=== PATIENT | male | born 2000 | race Caucasian/White ===

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

== ENCOUNTER 2025-02-02 15:53 | Emergency (ER) | payer BC, OTHER, SELFPAY ==
--- OUTSIDE RECORDS SUMMARY | 2024-10-13 03:00 | XMS_ITS ---
Author Organization [facility] [employer] [facility] Address [facility] [facility] [address] [place] [address] Care Team Providers Care Seals Engraver Name Role Phone Max Wan Unavailable [phone] Alaina Hinton Unavailable [phone] REASON FOR VISIT Therapy Visit Social History Sex Assigned At : Social History Observation Description Sex Assigned At Male Encounters Encounter Location Date Provider Diagnosis [facility] [employer] [facility], [address] [facility] [address] [place] [address] 10/13/2024 Alaina Hinton Plan Of Treatment Next Appt Details Provider Name:Acacia weinberg, 02/09/2025 09:00:00 AM, [address], [facility] [address], [place], [address], Progress Notes * ARCENIO KELLERDOB:1999 (25 yo M)Acc No.[id number]:10/13/2024 Patient: ARCENIO FARR Provider: Romi Hinton :2000 A ge:24 Y S ex:Male Date:10/13/2024 Phone: Address:[address] [place] [id number] Data: * Chief Complaints: * T herapy Visit Billing Information: * Procedure Codes: * Electronic signature of Eddy Hinton LCPC on 02/02/2025 at 04:00 PM SUPERVISOR TELEPHONE INFORMATION Sign off status: Pending Signatures: No Ad Hoc Signature Added * Provider: Romi Hinton Date: 0 10/13/2024 Generated for Donna babb/Wild/Irene on: 1 04/04/2024 04:00 PM SUPERVISOR TELEPHONE INFORMATION
--- NOTE | 2025-02-02 15:55 | ED_ITS ---
HPI - Skin/Abscess/Foreign Bdy General Chief complaint: Skin/Abscess/Foreign Body Stated complaint: painful spot on rear end Time Seen by Provider: 02/02/25 16:08 Source: patient, RN notes reviewed and old records reviewed Mode of arrival: ambulatory Limitations: no limitations History of Present Illness HPI narrative: 25-year-old male presents to the [facility] with soreness, a ?bump? to the left buttock and center of the buttock. Denies any drainage. No treatment prior to arrival. Denies having any thing like this before. Denies abdominal pain. Denies fevers Treatments prior to arrival: none Related Data Allergies Allergy/AdvReac Type Severity Reaction Status Date / Time No Known Allergies Allergy Verified 02/02/25 16:02 Review of Systems 2 Review of Systems: All systems reviewed & are unremarkable except as noted in HPI and below Constitutional: Constitutional: Reports no additional constitutional complaints ENT: Reports system reviewed and no additional complaints, except as documented Cardiovascular: Cardiovascular: Reports no additional cardiovascular complaints, Denies chest pain and Denies dyspnea Respiratory: Respiratory: Reports no additional respiratory complaints, Denies chest congestion, Denies cough and Denies dyspnea Musculoskeletal: Musculoskeletal: Reports no additional musculoskeletal complaints Integumentary/Breasts: Skin/Breast: Reports as per HPI PMFSH Comments At the time of my signature, I reviewed and agree with the nursing past medical, surgical, social, and family history. There is no relevant family history pertinent to the patient complaint. Exam 2 Const: General: cooperative, healthy appearing, comfortable, no acute distress, well developed, alert and well nourished Nutritional Appearance: w ell nourished Orientation/consciousness: patient oriented x3 Limitations: no limitations HENMT: Head: normal to inspection Eyes: General: appearance normal, both eyes and all related structures A lignment and Position: alignment normal Neck: Neck: normal visual inspection, full ROM, no lymphadenopathy and no meningeal signs Chest: Chest palpation & inspection: normal inspection of the chest Resp: Effort & Inspection: normal respiratory effort and able to speak in complete sentences Auscultation: clear to auscultation bilaterally, no crackles, no rales, no rhonchi and no wheezes Cardio: Rate: regular rate Skin: General skin exam: normal color and no rashes or lesions noted Full body images: 1. 5.5 x 3.5 red tender area, small fluctuant center. Drainage noted on exam, purulent. Neuro: General: patient oriented x3, gait normal, moves all extremities and no meningeal signs Cognition (Neuro): normal cognition Speech: normal speech Gait exam (Neuro): Normal gait present Extrem: General: normal to inspection, full ROM, capillary refill normal and normal gait Psych: Appearance: grossly normal and well kempt Mental Status: mental status grossly normal Speech and movement: Normal speech and movement present and Clear speech present Affect: normal affect Attitude: cooperative Course Course Level of Care: Express Care Visit Vital Signs Vital signs: Vital Signs Temperature 98.3 F 02/02/25 16:00 Pulse Rate 83 02/02/25 16:00 Respiratory Rate 20 02/02/25 16:00 Blood Pressure 136/71 02/02/25 16:00 Pulse Oximetry 97 02/02/25 16:00 Oxygen Delivery Room Air 02/02/25 16:00 Temperature 98.3 F 02/02/25 16:00 Pulse Rate 83 02/02/25 16:00 Respiratory Rate 20 02/02/25 16:00 Blood Pressure 136/71 02/02/25 16:00 Pulse Oximetry 97 02/02/25 16:00 Oxygen Delivery Room Air 02/02/25 16:00 Reviewed Procedures Abscess I/D other: Date of Incision: 02/02/25 Time of Incision: 16:20 Local Anesthetic: lidocaine 1% (3.5) Amount of anesthesia used (mL): 3.5 Technique: incised with #11 blade Amount of fluid expressed (mL): 6 Irrigation: No MDM - Skin/Abscess/Foreign Bdy MDM Narrative Medical decision making narrative: Patient sitting in exam room. Patient is nontoxic, vitals stable. Patient presents with soreness. Pilonidal cyst. Drainage is noted. Area cleaned with Betadine, injected with lidocaine. Increase the size of the opening with 11 blade. Culture collected and sent to lab. Patient tolerated procedure well Discharge instructions reviewed with patient, as well as provided in writing per nursing staff. The instructions also include specific and strict return/GO TO THE ER as well as f/u information. All questions have been answered, and the patient deny any further questions with discharge and discharge plan. Some parts of this dictation were generated by voice recognition software and may contain typographical and/or grammatical inaccuracies. Differential Diagnosis Differential diagnosis: Likely abscess of skin or subcutaneous tissue, cellulitis, insect bites and contact dermatitis Critical Care Time Critical Care Time Critical Care Time: No Discharge Plan Discharge Clinical Impression: Pilonidal cyst Patient Disposition: Home Condition: Stable Instructions: Antibiotic Form, Pilonidal Cyst (ED) Additional Instructions: soak twice a day and 3 in a water, Dial soap and 3 tbsp of Epson salt follow-up with primary care provider If you are having a hard time finding a physician please call our [facility] liaison at [phone]. follow-up with surgeon for evaluation for worsening symptoms go directly to the emergency room Patient Language: Tamazight Prescriptions: New sulfamethoxazole-trimethoprim [Bactrim DS] 800-160 mg tablet 1 tablet PO Q12H Qty: 14 0RF Follow-up/Referrals: Venus Whitaker MD [Physician, General Surgery] - 1 Week Clinical Impression: Pilonidal cyst UNKNOWN,DOCTOR [Primary Care Provider] Stand Alone Forms: Work/School Release IP Time of Disposition: 16:34
[2025-02-02 16:00] VITALS: BP 136/71; PULSE 83; RESP 20; TEMP 36.8; O2SAT 97
--- OUTSIDE RECORDS SUMMARY | 2025-02-02 16:01 | XMS_ITS | Clinical Summary ---
Author Organization [facility] Address [address] [place] [address] Phone Care Team Providers Care Child Protective Services Specialist Name Role Phone Jean-PierreyessicaErik gregory DO Primary Care Provider Allergies No known active allergies Medications cefUROXime axetil (CEFTIN) 250 mg Oral tablet Take 250 mg by mouth every 12 hours. Active DEXTROMETHORPHAN HBR (DELSYM ORAL) Take by mouth. Active azithromycin (ZITHROMAX Z-SOPHIE) 250 mg Oral tablet Take 2 tabs the first day and 1 tab days 2-5 1 Package None 08/14/2011 Active Immunizations Immunization Administration Dates Next Due (INFANRIX)(6 WKS-6 YRS) DIPT HERIA, TETANUS TOXOIDS, AND ACCELLULAR PERTUSSIS VACCINE (DTAP), 0.5 ML IM 01/08/2006,01/29/2004,2002,2002,2002 (IPOL)(6 WKS AND UP) POLIOVI LUISITO VACCINE, INACTIVATED (IPV), 3 DOSE, SUBCUT OR IM 01/08/2006,2002,2002,2001 (M-M-R II/PRIORIX)(12 MO UP) MEASLES, MUMPS AND RUBELLA VIRUS VACCINE, 0.5 ML IM/SUBCUT 01/08/2006,05/25/2003 (VARIVAX)(12 MOS UP)VARICELL A VIRUS VACCINE (PF) 0.5 ML, SUB CUT 11/04/2007,05/25/2003 HIB, Unspecified Formulation 05/25/2003, 2002,2002,2001 Hepatitis A Vaccine 11/04/2007,01/31/2005 Hepatitis B Vaccine 2002,2002,2001 Pneumococcal 7-valent conjug ate vaccine IM 01/29/2004,2002,2002,2001 Family History Medical History Relation Name Comments No Known Problems Father No Known Problems Mother Relation Name Status Comments Father Mother Social History Tobacco Use Types Packs/Day Years Used Date Smoking Tobacco: Never Alcohol Use Standard Drinks/Week Comments Not Currently 0 (1 standard drink = 0.6 oz pur e alcohol) Sex and Gender Information Value Date Recorded Sex Assigned at Not on file Legal Sex Male 3:33 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 Gender Identity Not on file Sexual Orientation Not on file Last Filed Vital Signs Vital Sign Reading Time Taken Comments Blood Pressure 118/72 06/03/2021 11:10 PM 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 Pulse 67 06/03/2021 11:10 PM 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 Temperature 36.9 C (98.4 F) 06/03/2021 7:56 PM 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 Respiratory Rate 17 06/03/2021 11:10 PM 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 Oxygen Saturation 99% 06/03/2021 11:10 PM 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 Inhaled Oxygen Concentration - - Weight 68 kg (150 lb) 06/03/2021 8:11 PM 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 Height 182.9 cm (6') 06/03/2021 8:11 PM 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 Body Mass Index 20.34 06/03/2021 8:11 PM 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 Plan of Treatment Health Maintenance Due Date Last Done Comments DTAP/TDAP/TD VACCINES (7 - T d or Tdap) 05/05/2023 05/05/2013, 01/08/2006, 01/29/2004, Additional history exists INFLUENZA VACCINE (#1) 2024 12/19/2019 HEPATITIS B VACCINES Completed 2002, 2002, 2002, Additional history exists HPV VACCINES Completed 10/04/2017, 05/0 12/2016, 12/11/2015 Insurance [facility] [email or web address] ACCESS CHOICE [facility] [place] [id number] [facility] [email or web address] ACCESS CHOICE Care Teams Child Protective Services Specialist Relationship Specialty Start Date End Date Erik Galloway DO PCP - General Pediatrics 09/05/19
--- OUTSIDE RECORDS SUMMARY | 2025-02-02 16:01 | XMS_ITS | Encounter Summary ---
Author Organization [facility] Address 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
--- OUTSIDE RECORDS SUMMARY | 2025-02-02 16:01 | XMS_ITS | Clinical Summary ---
Author Organization [facility] [employer] Address [address] [address] Care Team Providers Care Plastic Surgery Assistant Name Role Phone Erik Galloway DO Primary Care Provider Source Comments [facility],non-owned Affiliates and Associated Physician Practices is amultiple site organization consisting of ambulatory clinics and hospital sitesin [place], [place], [place] and [place]. This disclosure is being madepursuant to the Care Everywhere program and may not contain all information available regarding this patient. Last updated 17.[facility] Allergies No known active allergies Medications * Be aware that medications may not be up to date on this document. Alwaysverify current medications with the patient. acetaminophen (TYLENOL) 325 MG tablet Take 2 (two) tablets by mouth every 6 hours as needed for Fever or Pain Maximum allowable Acetaminophen amount = 4 Grams (4000 mg) / 24 hours. 60 tablet 01 1 Active ibuprofen (MOTRIN) 200 MG tablet Take 1 (one) tablet to 2 (two) tablets by mouth every 6 hours as needed for Pain 100 tablet 1 Active Active Problems Problem Noted Date Diagnosed Date Attention deficit hyperactiv ity disorder (ADHD), predominantly inattentive type 10/04/2017 Immunizations Immunization Administration Dates Next Due DTaP VACCINE IM (6wk-6yrs) 01/08/2006,,2002,05/30,2002 HEP A PEDS 2 DOSE 11/04/2007,01/31/2005 HEP B VACCINE, PED/ADOL 2002,2002, HIB-PRP-T 4 DOSE 05/25/2003, 3,2002,03/27 Human Papilloma Virus Nineva lent Vaccine 10/04/2017 Human Papilloma Virus Vaccine 08/08/2016, 016 INFLUENZA VACCINE 12/11/2015,11/11/2014 INFLUENZA VACCINE, QUADR. (F LUZONE; FLULAVAL; FLUARIX; AFLURIA QUADRIVALENT; 6MO+), 0.5 ML (IIV4) 12/19/2019 MENINGOCOCAL MENINGITIS 11/11/2014 MENINGOCOCCAL ACWY (MCV4P) VAC IM 05/23/2019 MMR 01/08/2006,05/25/2003 PNEUMOCOCCAL PCV7 CONJ, PEDS 01/29/2004, 2002,2002,03/27 POLIO IPV 01/08/2006, 3,2002,03/27 TDAP (7yrs+) 05/05/2013 VARICELLA 11/04/2007,05/25/2003 Family History Medical History Relation Name Comments Asthma Father Allergic Rhinitis Maternal Grandmother Asthma Maternal Grandmother CAD (Coronary Artery Disease) Maternal Grandmother Diabetes - Type 2 Maternal Grandmother Hyperlipidemia Maternal Grandmother Hypertension Maternal Grandmother Allergic Rhinitis Mother Asthma Mother Relation Name Status Comments Father Maternal Grandmother Mother Social History Tobacco Use Types Packs/Day Years Used Date Smoking Tobacco: Never Smokeless Tobacco: Never Alcohol Use Standard Drinks/Week Comments Never 0 (1 standard drink = 0.6 oz pur e alcohol) Sex and Gender Information Value Date Recorded Sex Assigned at Not on file Legal Sex Male 9:40 AM CDT Gender Identity Not on file Sexual Orientation Not on file Last Filed Vital Signs Vital Sign Reading Time Taken Comments Blood Pressure 133/78 03/22/2021 11:30 AM LOG DRIVER Pulse 70 03/22/2021 11:30 AM LOG DRIVER Temperature 37 C (98.6 F) 03/22/2021 10:49 AM LOG DRIVER Respiratory Rate 16 03/22/2021 11:3 0 AM LOG DRIVER Oxygen Saturation 98% 03/22/2021 11: 30 AM LOG DRIVER Inhaled Oxygen Concentration - - Weight 71.6 kg (157 lb 12.8 oz) 03/22/2021 6:11 AM LOG DRIVER Height 182.9 cm (6') 03/22/2021 6:11 AM LOG DRIVER Body Mass Index 21.4 03/22/2021 6:11 AM LOG DRIVER Plan of Treatment Health Maintenance Due Date Last Done Comments HIV SCREENING 2017 MENINGOCOCCAL (Group B) VACC INE SHARED DECISION-MAKING (1 of 2 - Standard) 2018 HEPATITIS C SCREENING 01/03/2020 DTAP/TDAP/TD VACCINES (7 - T d or Tdap) 05/05/2023 05/05/2013, 01/08/2006, 01/09/2004, Additional history exists DEPRESSION SCREENING 04/02/2024 COVID-19 VACCINE ( - 2023-2 5 season) 2024 INFLUENZA VACCINE (#1) 2024 0, 12/11/2015, 11/11/2014 ZOSTER VACCINE (1 of 2) 01/08/2052 HEPATITIS B VACCINE Completed 2002, 2002, 2002 HIB VACCINE Completed 05/25/2003, 07/02, 2002, Additional history exists PNEUMOCOCCAL VACCINE Completed 01/29/2004, 2002, 2002, Additional history exists HPV VACCINE Completed 10/04/2017, 05/0 12/2016, 12/11/2015 MENINGOCOCCAL GROUPS A/C/Y/W VACCINE Completed 05/23/2019, 11/11/2014 Insurance [employer] ANTHEM ANTHEM Care Teams Plastic Surgery Assistant Relationship Specialty Start Date End Date Erik Galloway DO PCP - General 12/22/20
--- OUTSIDE RECORDS SUMMARY | 2025-02-02 16:01 | XMS_ITS | Encounter Summary ---
Author Organization [facility] Address [address] [place] [address] Care Team Providers Care Carbider Name Role Phone Erik Galloway DO Primary Care Provider Encounter Details Date Type Department Care Team (Late st Contact Info) Description [facility] Shruti Stevens MD [address] [place] [phone] [facility]IN CHILD HEALTH EXAM (Primary Dx) Social History Tobacco Use Types Packs/Day Years Used Date Smoking Tobacco: Never Assessed Sex and Gender Information Value Date Recorded Sex Assigned at Not on file Legal Sex Male 3:33 AM MEDICAL CERTIFICATION SPECIALIST Gender Identity Not on file Sexual Orientation Not on file documented as of this encounter Plan of Treatment Not on file documented as of this encounter Visit Diagnoses Diagnosis Routine or child health check- Primary documented in this encounter Care Teams Carbider Relationship Specialty Start Date End Date Erik Galloway DO PCP - General Pediatrics 09/05/19 documented as of this encounter
--- OUTSIDE RECORDS SUMMARY | 2025-02-02 16:01 | XMS_ITS | Encounter Summary ---
Author Organization [facility] Address 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
--- OUTSIDE RECORDS SUMMARY | 2025-02-02 16:01 | XMS_ITS | Encounter Summary ---
Author Organization [facility] Address 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
--- OUTSIDE RECORDS SUMMARY | 2025-02-02 16:01 | XMS_ITS | Encounter Summary ---
Author Organization [facility] Address [address] [place] [address] Care Team Providers Care Principal Systems Engineer Name Role Phone Erik Galloway DO Primary Care Provider Encounter Details Date Type Department Care Team (Late st Contact Info) Description 2002 Outpatient Historical [facility] [address] [place] [address] Theresa Watson MD [address] [facility] [address] [place] [address] Social History Tobacco Use Types Packs/Day Years Used Date Smoking Tobacco: Never Assessed Sex and Gender Information Value Date Recorded Sex Assigned at Not on file Legal Sex Male 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
--- OUTSIDE RECORDS SUMMARY | 2025-02-02 16:01 | XMS_ITS | Patient Health Record ---
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 Name Role Phone MaxWan Unavailable [phone] Tao Mckeon Unavailable [phone] Ema Silverio Unavailable [phone] Alaina Hinton Unavailable [phone] Allergies No Known Allergies Results Component Value Reference Range Notes UDT Reviewed date:10/16/2024 06:42:53 AM Interpretation: Performing Lab: Notes/Report: Amphetamine (AMP) N 0 - 1000 ng/ml Buprenorphine (BUP) N 0 - 10 ng/ml Oxazepam (BZO) N 0 - 300 ng/ml Cocaine (GIORGI) N 0 - 300 ng/ml Methamphetamine (mAMP) N 0 - 300 ng/ml Methylenedioxymethamphetamine (MDMA) N 0 - 500 ng/ml Morphine (MOP) N 0 - 25 ng/ml Methadone (MTD) N 0 - 300 ng/ml Oxycodone (OXY) N 0 - 300 ng/ml THC N 0 - 50 ng/ml x N 0 - 1000 ng/ml x N 0 - 1000 ng/ml x N 0 - 300 ng/ml x N 0 - 300 ng/ml UDT Reviewed date:08/01/2024 10:40:50 AM Interpretation: Performing Lab: Notes/Report: Amphetamine (AMP) n 0 - 1000 ng/ml Buprenorphine (BUP) n 0 - 10 ng/ml Oxazepam (BZO) n 0 - 300 ng/ml Cocaine (GIORGI) n 0 - 300 ng/ml Methamphetamine (mAMP) n 0 - 300 ng/ml Methylenedioxymethamphetamine (MDMA) n 0 - 500 ng/ml Morphine (MOP) n 0 - 25 ng/ml Methadone (MTD) n 0 - 300 ng/ml Oxycodone (OXY) n 0 - 300 ng/ml THC n 0 - 50 ng/ml x n 0 - 1000 ng/ml x n 0 - 1000 ng/ml x n 0 - 300 ng/ml x n 0 - 300 ng/ml Screening Reviewed date:09/05/2024 09:40:20 AM Interpretation: Performing Lab: [facility], [place], [address] [facility], [facility], Director - [id number] Notes/Report: An exception occurred while processing this report and so it has incomplete data. Please contact [employer] for assistance. Not Medicated Consistent Not Medicated Consistent Not Medicated Consistent Not Medicated Consistent Not Medicated Consistent Not Medicated Consistent Not Medicated Consistent Not Medicated Consistent Not Medicated Consistent Not Medicated Consistent Not Medicated Consistent Not Medicated Consistent Not Medicated Consistent Not Medicated Consistent Amphetamines - Screening NEGATIVE 500.0 Benzodiazepines - Screening -9.8 200.0 ng/mL Opiates - Screening -10.9 300.0 ng/mL THC - Screening 1.4 50.0 MDMA - Screening NEGATIVE 500.0 Heroin - Screening NEGATIVE 10.0 Cocaine - Screening NEGATIVE 150.0 ng/mL Buprenorphine - Screening NEGATIVE 5.0 ng/mL Oxycodone - Screening NEGATIVE 100.0 ng/mL EtG - Screening NEGATIVE 500.0 ng/mL Fentanyl - Screening NEGATIVE 2.0 ng/mL Methadone - Screening -5.6 300.0 ng/mL Phencyclidine - Screening NEGATIVE 25.0 ng/mL Propoxyphene - Screening -2.2 300.0 ng/mL PDF Report [email or web address] [email or web address] THCCOOH Reviewed date:09/05/2024 09:40:25 AM Interpretation: Performing Lab: Notes/Report: THCCOOH NEGATIVE 15.0 ng/mL Not Medicated Consistent Seroquel Reviewed date:09/05/2024 09:40:31 AM Interpretation: Performing Lab: Notes/Report: UDT Reviewed date:09/03/2024 09:33:01 AM Interpretation: Performing Lab: Notes/Report: Amphetamine (AMP) n 0 - 1000 ng/ml Buprenorphine (BUP) n 0 - 10 ng/ml Oxazepam (BZO) n 0 - 300 ng/ml Cocaine (GIORGI) n 0 - 300 ng/ml Methamphetamine (mAMP) n 0 - 300 ng/ml Methylenedioxymethamphetamine (MDMA) n 0 - 500 ng/ml Morphine (MOP) n 0 - 25 ng/ml Methadone (MTD) n 0 - 300 ng/ml Oxycodone (OXY) n 0 - 300 ng/ml THC feint 0 - 50 ng/ml x n 0 - 1000 ng/ml x n 0 - 1000 ng/ml x n 0 - 300 ng/ml x n 0 - 300 ng/ml Reason For Referral No Information Medications Medication SIG (Take, Route, Frequency, Duration) Notes Start Date End Date Status Atomoxetine HCl 60 MG Capsule 1 capsule in the morning Orally Once a day; Duration: 30 days Active Escitalopram Oxalate 10 MG Tablet 1 tablet Oral Once a day; Duration: 90 days Active Invega Sustenna 156 MG/ML Suspension Prefilled Syringe 1 mL Intramuscular once a month; Duration: 30 days Active QUEtiapine Fumarate 50 MG Tablet 1 tablet at bedtime Orally Once a day 10/13/2024 Active QUEtiapine Fumarate ER 50 MG Tablet Extended Release 24 Hour 2 tablet in the evening Orally Once a day 08/08/2024 Unknown Invega Sustenna 234 MG/1.5ML Suspension Prefilled Syringe 1.5 mL Intramuscular once; Duration: 1 days Unknown Invega Sustenna 156 MG/ML Suspension Prefilled Syringe 1 mL Intramuscular next dose due on 12/01/2024 09/19/2024 Active traZODone HCl 50 MG Tablet 1 tablet at bedtime as needed Orally Once a day 10/31/2024 Active Social History Tobacco Use: Social History Observation Description Date Details (start date - stop date) Current some da y smoker NA - NA Sex Assigned At : Social History Observation Description Sex Assigned At Male Social History Miscellaneous: Social Info Question Answer Notes Safety issues: Are there any firearms in the house? No Social History Social Info Question Answer Notes Household: Marital Status: Not Answered Number of Adults in household: 3 Number of Children in Household: 2 Level of Education: Not Answered Household: Social Info Question Answer Notes Household Number of adults in household: 3 Number of children in household: 2 Level of education: finished high school Drug/Alcohol: Social Info Question Answer Notes Drugs Have you used drugs other than those for medical reasons in the past 12 months? Yes Methamphetamine? Yes Crack? Yes LSD? No Ecstacy? No Prescription opiates? Yes Marijuana? Yes Ketamine? No PCP? No Is there a minor (18 years or younger) at risk at home? No Are you still using? No AUDIT-C (Standard) Did you have a drink containi ng alcohol in the past year? Yes How often did you have six or more drinks on one occasion in the past year? Never (0 point) How many drinks did you have on a typical day when you were drinking in the past year? Declined to specify (0 point) How often did you have a drink containing alcohol in the past year? Monthly or less (1 point) Tobacco Use: Social Info Question Answer Notes Tobacco Control (Standard) Tobacco use: Current some d ay smoker How often do you smoke cigarettes? Every day How many cigarettes a day do you smoke? 6-10 How soon after you wake up do you smoke your first cigarette? Within 5 minutes Additional Details Category Social Info Options Details Miscellaneous: Occupation: out of work Drug/Alcohol: Do you smoke marijuana? Adm its Problems Problem Type SNOMED Code ICD Code Onset Dates Problem Status W/U Status Risk Notes Problem Moderate major depression, single episode (61029089) Major depressive disorder, single episode, moderate (F32.1) Active confirmed Problem Generalized anxiety disorder (07160178) Generalized anxiety disorder (F41.1) Active confirmed well controlled, continue current therapy stable [id number] on 10/13/2024: 1 Problem Insomnia disorder related to another mental disorder (97762506) Insomnia due to other mental disorder (F51.05) Active confirmed needs improvement Problem Attention deficit hyperactivity disorder (056887993) Attention-deficit hyperactivity disorder, unspecified type (F90.9) Active confirmed Previously diagnosed Problem Hallucinations (9685915) Hallucinations, unspecified (R44.3) Active confirmed Problem Irritability and anger (604771253) Irritability and anger (R45.4) Active confirmed Problem Depression Screening (167619818) Encounter for screening for depression (Z13.31) Active confirmed Problem Nondependent cannabis abuse (262839518) Marijuana use (F12.90) Active confirmed reports he no longer uses marijuana Problem Attention deficit hyperactivity disorder (244303920) Attention deficit hyperactivity disorder (ADHD), unspecified ADHD type (F90.9) Active confirmed Problem Schizoaffective schizophrenia (440956211) Schizoaffective schizophrenia (F25.9) Active confirmed well controlled, continue current therapy stable Problem Tobacco use (009296917) Nicotine use (Z72.0) Active confirmed Vital Signs Heart Rate 92 /min 11/28/2024 Height-cm 177.8 cm 11/28/2024 Blood pressure diastolic 70 mm Hg 11/28/2024 Weight-kg 99.79 kg 11/28/2024 Height 70 in 11/28/2024 Blood pressure systolic 112 mm Hg 11/28/2024 Weight 220.0 lbs 11/28/2024 BMI 31.56 kg/m2 11/28/2024 Procedures Procedure Date Ordered Date Performed Result Body Sit e ADHD Testing 10/13/2024 N/A Encounters Encounter Location Date Provider Diagnosis [facility] [employer] [address] [place] [id number] 08/01/2024 Awn [employer] Schizoaffective schizophrenia F25.9 ; Nicotine use Z72.0 ; Encounter for screening for depression Z13.31 and Encounter for screening for cardiovascular disorders Z13.6 [employer] [address] [place] [id number] 08/01/2024 Alaina Hinderlikarin Generalized anxiety disorder F41.1 ; Hallucinations, unspecified R44.3 ; Irritability and anger R45.4 ; Encounter for screening for depression Z13.31 and Encounter for screening for cardiovascular disorders Z13.6 [facility] [employer] [address] 08/08/2024 Alaina Hinderliter Generalized anxiety disorder F41.1 ; Hallucinations, unspecified R44.3 ; Irritability and anger R45.4 and Encounter for screening for depression Z13.31 [facility] [employer] [address] [address] 08/08/2024 Wan Clubb Encounter for screening for depression Z13.31 ; Generalized anxiety disorder F41.1 ; Hallucinations, unspecified R44.3 ; Nicotine use Z72.0 and Encounter for screening for cardiovascular disorders Z13.6 [facility] [employer] [facility], [address] [address] 08/22/2024 Alaina Hinderliter Generalized anxiety disorder F41.1 ; Major depressive disorder, single episode, moderate F32.1 ; Irritability and anger R45.4 ; Nicotine use Z72.0 ; Hallucinations, unspecified R44.3 and Encounter for screening for depression Z13.31 [facility] [employer] [facility], [employer] [facility] [address] [place] [address] 08/22/2024 Wan [employer] Encounter for screening for depression Z13.31 ; Schizoaffective schizophrenia F25.9 ; Generalized anxiety disorder F41.1 ; Nicotine use Z72.0 and Irritability and anger R45.4 [facility] [employer] [facility], [employer] [facility] [address] [place] [address] 09/03/2024 Alaina Hinderliter Major depressive disorder, single episode, moderate F32.1 ; Generalized anxiety disorder F41.1 ; Hallucinations, unspecified R44.3 ; Nicotine use Z72.0 ; Irritability and anger R45.4 and Encounter for screening for depression Z13.31 [facility] [employer] [facility], [employer] [facility] [address] [place] [address] 09/03/2024 Wan [employer] Schizoaffective schizophrenia F25.9 ; Generalized anxiety disorder F41.1 ; Nicotine use Z72.0 ; Marijuana use F12.90 ; Encounter for screening for depression Z13.31 and Encounter for screening for cardiovascular disorders Z13.6 [facility] [employer], [employer] [facility] [address] [place] [address] 09/08/2024 Alaina Hinderliter Marijuana use F12.90 ; Major depressive disorder, single episode, moderate F32.1 ; Generalized anxiety disorder F41.1 ; Hallucinations, unspecified R44.3 ; Irritability and anger R45.4 and Encounter for screening for depression Z13.31 [facility] [employer] [facility] [place] [address] 09/22/2024 Wan Clubb Encounter for screening for cardiovascular disorders Z13.6 and Schizoaffective schizophrenia F25.9 [facility] [employer], [employer] [facility] [address] [place] [address] 09/22/2024 Alaina Hinderliter Generalized anxiety disorder F41.1 ; Impulsiveness R45.87 ; Irritability and anger R45.4 and Encounter for screening for depression Z13.31 [facility] [employer] [facility] [place] [address] 09/29/2024 Wan [employer] Schizoaffective schizophrenia F25.9 ; Encounter for screening for cardiovascular disorders Z13.6 and Encounter for screening for depression Z13.31 [facility] [employer] [facility], [employer] [address] [place] [address] 09/29/2024 Alaina Hinton Generalized anxiety disorder F41.1 ; Attention-deficit hyperactivity disorder, unspecified type F90.9 ; Insomnia due to other mental disorder F51.05 ; Irritability and anger R45.4 and Encounter for screening for depression Z13.31 [facility] [employer] [facility], [employer] [address] [place] [address] 10/06/2024 Wan [employer]b [facility] [employer] [facility], [employer] [address] [place] [address] 10/13/2024 Wan [employer] Generalized anxiety disorder F41.1 ; Schizoaffective schizophrenia F25.9 ; Nicotine use Z72.0 ; Attention-deficit hyperactivity disorder, unspecified type F90.9 ; Marijuana use F12.90 and Insomnia due to other mental disorder F51.05 [facility] [employer] [facility] [address] [place] [address] 10/14/2024 Tao Linda Attention deficit hyperactivity disorder (ADHD), unspecified ADHD type F90.9 [facility] [employer] [facility], [address] [address] [place] [address] 10/24/2024 Wan Clubb [facility] [employer] [facility] [address] [place] [address] 10/31/2024 Tao Linda [facility] [employer] [facility], [address] [address] [place] [address] 10/31/2024 Wan Clubb Generalized anxiety disorder F41.1 ; Schizoaffective schizophrenia F25.9 ; Nicotine use Z72.0 ; Attention-deficit hyperactivity disorder, unspecified type F90.9 ; Marijuana use F12.90 and Insomnia due to other mental disorder F51.05 [facility] [employer] [facility] [address] [place] [address] 11/28/2024 Tao Linda Schizoaffective schizophrenia F25.9 [facility] [employer] [facility] [address] [place] [address] 12/05/2024 Ema Jean Claude [facility] [employer], [facility] [address] [place] [address] 08/01/2024 Wan Clubb [facility] [employer], [facility] [address] [place] [address] 08/28/2024 Wan Clubb [facility] [employer], [facility] [address] [place] [address] 10/02/2024 Wan Clubb [facility] [employer] [facility], [employer] [address] [place] [address] 10/07/2024 Wna Clubb [facility] [employer], [facility] [address] [place] [address] 10/13/2024 Wan Clubb [facility] [employer], [facility] [address] [place] [address] 10/31/2024 Wan Clubb [facility] [employer], [facility] [address] [place] [address] 11/13/2024 Wan Clubb Schizoaffective schizophrenia F25.9 Assessments Encounter Date Diagnosis (ICD Code) Assessment Notes Treatment Notes Treatment Clinical Notes Section Notes 08/01/2024 Schizoaffective schizophrenia (ICD-10 - F25.9) Learning About Schizoaffective Disorder material was published 08/01/2024 Nicotine use (ICD-10 - Z72.0) Quitting Tobacco: Care Instructions material was published 08/01/2024 Generalized anxiety disorder (ICD-10 - F41.1) 1. Anxiety with panic attacks - Implement weekly therapy sessions focusing on anxiety management techniques. - Explore triggers and underlying causes of panic attacks in specific locations. - Consider gradual exposure therapy to reduce anxiety in problematic settings. 2. Attention Deficit Hyperactivity Disorder (ADHD) - Assess current ADHD management strategies and their effectiveness. - Develop tailored coping mechanisms for improved focus and task completion. - Coordinate with medication management provider regarding potential ADHD medication options. 3. Hallucinations - Further assess the nature, frequency, and impact of hallucinations. - Explore potential environmental triggers or sleep-related factors. - Coordinate with medication management provider to evaluate current medications and their potential impact on hallucinations. 4. Anger management - Implement anger management techniques within therapy sessions. - Develop healthier communication strategies, particularly for family interactions. - Educate on the distinction between feeling anger and expressing it appropriately. 5. Sleep disturbances - Monitor sleep patterns and their impact on daily functioning. - Discuss sleep hygiene techniques and potential adjustments to sleep schedule. - Coordinate with medication management provider regarding prazosin use and its effects on sleep quality. 6. Appetite changes - Monitor eating patterns and their impact on overall health and well-being. - Provide education on balanced nutrition and meal planning if needed. 7. Motivation and daily living activities - Develop strategies to improve motivation and task initiation for daily activities. - Implement behavioral activation techniques to increase engagement in self-care and household tasks. - Monitor for signs of depression and adjust treatment plan as needed. Follow-up: - Schedule next therapy session to continue addressing identified issues and monitor progress. 08/01/2024 Hallucinations, unspecified (ICD-10 - R44.3) 1. Anxiety with panic attacks - Implement weekly therapy sessions focusing on anxiety management techniques. - Explore triggers and underlying causes of panic attacks in specific locations. - Consider gradual exposure therapy to reduce anxiety in problematic settings. 2. Attention Deficit Hyperactivity Disorder (ADHD) - Assess current ADHD management strategies and their effectiveness. - Develop tailored coping mechanisms for improved focus and task completion. - Coordinate with medication management provider regarding potential ADHD medication options. 3. Hallucinations - Further assess the nature, frequency, and impact of hallucinations. - Explore potential environmental triggers or sleep-related factors. - Coordinate with medication management provider to evaluate current medications and their potential impact on hallucinations. 4. Anger management - Implement anger management techniques within therapy sessions. - Develop healthier communication strategies, particularly for family interactions. - Educate on the distinction between feeling anger and expressing it appropriately. 5. Sleep disturbances - Monitor sleep patterns and their impact on daily functioning. - Discuss sleep hygiene techniques and potential adjustments to sleep schedule. - Coordinate with medication management provider regarding prazosin use and its effects on sleep quality. 6. Appetite changes - Monitor eating patterns and their impact on overall health and well-being. - Provide education on balanced nutrition and meal planning if needed. 7. Motivation and daily living activities - Develop strategies to improve motivation and task initiation for daily activities. - Implement behavioral activation techniques to increase engagement in self-care and household tasks. - Monitor for signs of depression and adjust treatment plan as needed. Follow-up: - Schedule next therapy session to continue addressing identified issues and monitor progress. 08/08/2024 Generalized anxiety disorder (ICD-10 - F41.1) 1. Anger management and overstimulation - Patient reports improved stability in managing anger, particularly around his young siblings. - Implementing strategies to distance himself when feeling overstimulated, often recognizing the need when it's too late. - Describes feeling snippy when overwhelmed and tendency to want to physically remove himself from overstimulating situations. - Acknowledges difficulty in finding effective ways to create space, as children tend to follow him. - Demonstrates insight into the need for better coping mechanisms and shows willingness to learn new strategies. Plan: - Implement TIP (Temperature, Intense exercise, Paced breathing, Paired muscle relaxation). - Practice coping skills for short durations (e.g., 2 minutes) when calm to build habit. - Continue to monitor effectiveness of current strategies and adjust as needed. 2. Occupational concerns - Patient expresses interest in seeking employment and has been actively applying for jobs. 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 - Expresses ambivalence about working from home versus outside the home, noting desire to leave the house. - Mentions long-term goals of saving money, investing, or potentially relocating to [place] for business opportunities. Plan: - Encourage continued job search efforts and preparation for upcoming online interview. - Explore potential job opportunities that align with patient's interests and physical capabilities. - Discuss strategies for balancing work life with home responsibilitie s and mental health management. - Address potential challenges and coping strategies related to transitioning back into the workforce. 3. Social isolation and relationship management - Patient reports limited social connections, identifying only one friend, his sister, and sister's boyfriend. - Mentions distancing himself from old friends but acknowledges difficulty in fully letting go of these relationships. - Has abstained from social media use for over a year and a half, which may contribute to limited social network. Plan: - Explore patient's feelings about current social situation and desire for change. - Discuss healthy boundaries and strategies for maintaining beneficial relationships while distancing from potentially harmful ones. - Consider pros and cons of re-engaging with social media in a controlled manner to expand social connections. - Encourage patient to identify and pursue social activities aligned with his interests and values. 08/08/2024 Hallucinations, unspecified (ICD-10 - R44.3) 1. Anger management and overstimulation - Patient reports improved stability in managing anger, particularly around his young siblings. - Implementing strategies to distance himself when feeling overstimulated, often recognizing the need when it's too late. - Describes feeling snippy when overwhelmed and tendency to want to physically remove himself from overstimulating situations. - Acknowledges difficulty in finding effective ways to create space, as children tend to follow him. - Demonstrates insight into the need for better coping mechanisms and shows willingness to learn new strategies. Plan: - Implement TIP (Temperature, Intense exercise, Paced breathing, Paired muscle relaxation). - Practice coping skills for short durations (e.g., 2 minutes) when calm to build habit. - Continue to monitor effectiveness of current strategies and adjust as needed. 2. Occupational concerns - Patient expresses interest in seeking employment and has been actively applying for jobs. 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 - Expresses ambivalence about working from home versus outside the home, noting desire to leave the house. - Mentions long-term goals of saving money, investing, or potentially relocating to [place] for business opportunities. Plan: - Encourage continued job search efforts and preparation for upcoming online interview. - Explore potential job opportunities that align with patient's interests and physical capabilities. - Discuss strategies for balancing work life with home responsibilitie s and mental health management. - Address potential challenges and coping strategies related to transitioning back into the workforce. 3. Social isolation and relationship management - Patient reports limited social connections, identifying only one friend, his sister, and sister's boyfriend. - Mentions distancing himself from old friends but acknowledges difficulty in fully letting go of these relationships. - Has abstained from social media use for over a year and a half, which may contribute to limited social network. Plan: - Explore patient's feelings about current social situation and desire for change. - Discuss healthy boundaries and strategies for maintaining beneficial relationships while distancing from potentially harmful ones. - Consider pros and cons of re-engaging with social media in a controlled manner to expand social connections. - Encourage patient to identify and pursue social activities aligned with his interests and values. 08/08/2024 Generalized anxiety disorder (ICD-10 - F41.1) 08/08/2024 Encounter for screening for depression (ICD-10 - Z13.31) 08/22/2024 Major depressive disorder, single episode, moderate (ICD-10 - F32.1) Nicotine Dependence Assessment: Patient reports smoking 2.5 to 3 packs of cigarettes per week, down from previous higher consumption. He expresses a desire to quit smoking but acknowledges the difficulty, citing its use as a coping mechanism for stress and its stimulant effects. The patient recognizes the need to find alternative coping strategies and is open to gradual reduction rather than abrupt cessation. Plan: - Implement gradual smoking reduction strategy - Introduce alternative coping mechanisms: - Use of plastic or paper straws cut to cigarette size for [id number] habit - Engage in physical activities (e.g., walking, biking, workout, yoga) when urge to smoke arises - Practice grounding techniques using 5 senses - Consider using rubber band on wrist as a reminder/deterr ent - Encourage healthy snack alternatives (e.g., carrots, watermelon) to manage oral fixation - Set a goal date for complete smoking cessation - Calculate potential financial savings from quitting to use as motivation Sleep Disturbance Assessment: Patient reports difficulty with sleep, which is impacting his daily routine and motivation. There are indications of auditory and visual hallucinations related to past. The sleep disturbance appears to be cyclical, with lack of sleep causing issues that lead to later bedtimes and difficulty waking in the morning. Plan: - Establish consistent sleep schedule: - Target bedtime of 9:30-10:00 PM - Wake-up time around 6:00-6:30 AM - Follow up with [facility] for medication management - Implement morning routine to promote wakefulness: - Open room-darkening curtains upon waking - Allow natural light into the room - Open windows for fresh air when weather permits - Monitor effectiveness of sleep hygiene measures and medication adjustments Lifestyle Management Assessment: Patient expresses interest in establishing a healthier daily routine, including regular exercise and improved time management. He acknowledges the need for structure to support his goals of smoking cessation and better sleep habits. The patient also mentions a tendency to hold in emotions, which can lead to sudden outbursts. Plan: - Develop structured daily schedule: - Wake up at 6:00-6:30 AM - Begin at-home workouts 15-20 minutes after waking - Exercise for 30-45 minutes - Have breakfast/brunc h after workout - Gradually work towards gym attendance at 4:30 AM as a long-term goal - Encourage use of alarm clock to maintain consistent wake times - Explore healthy emotional expression techniques to prevent emotional suppression and outbursts - Implement regular outdoor activities to promote exposure to natural light and fresh air 08/22/2024 Generalized anxiety disorder (ICD-10 - F41.1) Nicotine Dependence Assessment: Patient reports smoking 2.5 to 3 packs of cigarettes per week, down from previous higher consumption. He expresses a desire to quit smoking but acknowledges the difficulty, citing its use as a coping mechanism for stress and its stimulant effects. The patient recognizes the need to find alternative coping strategies and is open to gradual reduction rather than abrupt cessation. Plan: - Implement gradual smoking reduction strategy - Introduce alternative coping mechanisms: - Use of plastic or paper straws cut to cigarette size for [id number] habit - Engage in physical activities (e.g., walking, biking, workout, yoga) when urge to smoke arises - Practice grounding techniques using 5 senses - Consider using rubber band on wrist as a reminder/deterr ent - Encourage healthy snack alternatives (e.g., carrots, watermelon) to manage oral fixation - Set a goal date for complete smoking cessation - Calculate potential financial savings from quitting to use as motivation Sleep Disturbance Assessment: Patient reports difficulty with sleep, which is impacting his daily routine and motivation. There are indications of auditory and visual hallucinations related to past. The sleep disturbance appears to be cyclical, with lack of sleep causing issues that lead to later bedtimes and difficulty waking in the morning. Plan: - Establish consistent sleep schedule: - Target bedtime of 9:30-10:00 PM - Wake-up time around 6:00-6:30 AM - Follow up with [facility] for medication management - Implement morning routine to promote wakefulness: - Open room-darkening curtains upon waking - Allow natural light into the room - Open windows for fresh air when weather permits - Monitor effectiveness of sleep hygiene measures and medication adjustments Lifestyle Management Assessment: Patient expresses interest in establishing a healthier daily routine, including regular exercise and improved time management. He acknowledges the need for structure to support his goals of smoking cessation and better sleep habits. The patient also mentions a tendency to hold in emotions, which can lead to sudden outbursts. Plan: - Develop structured daily schedule: - Wake up at 6:00-6:30 AM - Begin at-home workouts 15-20 minutes after waking - Exercise for 30-45 minutes - Have breakfast/brunc h after workout - Gradually work towards gym attendance at 4:30 AM as a long-term goal - Encourage use of alarm clock to maintain consistent wake times - Explore healthy emotional expression techniques to prevent emotional suppression and outbursts - Implement regular outdoor activities to promote exposure to natural light and fresh air 08/22/2024 Encounter for screening for depression (ICD-10 - Z13.31) 08/22/2024 Schizoaffective schizophrenia (ICD-10 - F25.9) drug use vs schizoaffective disorder. progress in treatment dependent on repeat urine drug screen *patient refused* increased quetiapine to 150 mg HS continue escitalopram 10 mg daily - start invega 6 mg for 3 days if urine drug screen comes back negative and symptoms persist. - invega sustenna 234 mg IM once after tolerability of invega PO confirmed - invega sustena 156 mg IM once one week after first IM injection. CancelRx Response got Denied on 2024-10-13 11:00:15 for 'QUEtiapine Fumarate ER 150 MG Tablet Extended Release 24 Hour'Pharmacy Notes: Unable to Cancel Rx. Please contact Pharmacy drug use vs schizoaffective disorder. progress in treatment dependent on repeat urine drug screen *patient refused* increased quetiapine to 150 mg HS - start invega 6 mg for 3 days if urine drug screen comes back negative and symptoms persist. - invega sustenna 234 IM once after tolerability of invega PO confirmed - invega sustena 156 mg IM once one week after first IM injection. 09/03/2024 Major depressive disorder, single episode, moderate (ICD-10 - F32.1) Depression Assessment: Akin exhibits symptoms consistent with depression, including low energy, lack of motivation, and difficulty maintaining a daily routine. He reports spending most of his day inactive, waiting for the day to end. There is a notable absence of structured activities and a lack of engagement in job searching, having only applied to one position recently. His sleep pattern is disrupted, with late wake-up times (10:30-11:00 AM). Akin expresses a desire for employment but struggles to initiate the necessary steps. He has attempted to quit smoking cold turkey without success. There is a history of alcohol use, which may be exacerbating his depressive symptoms and interfering with medication efficacy. Akin is resistant to taking medication, citing concerns about grogginess and a preference for managing independently. Plan: - Implement gradual behavioral activation techniques: - Start with small movements (e.g., wiggling fingers and toes) - Progress to larger movements (e.g., getting out of bed) - Encourage outdoor activities and exposure to bright light - Focus on job search strategies: - Set small, achievable goals for job applications - Utilize job search platforms like [employer] - Address alcohol use: - Educate on negative interactions with medications and impact on mood - Encourage reduction or cessation of alcohol consumption - Discuss smoking cessation strategies as an alternative to cold turkey approach - Continue to explore patient's hesitations about medication while respecting his preferences - Schedule follow-up appointments every other week as per patient's preference 09/03/2024 Generalized anxiety disorder (ICD-10 - F41.1) Depression Assessment: Akin exhibits symptoms consistent with depression, including low energy, lack of motivation, and difficulty maintaining a daily routine. He reports spending most of his day inactive, waiting for the day to end. There is a notable absence of structured activities and a lack of engagement in job searching, having only applied to one position recently. His sleep pattern is disrupted, with late wake-up times (10:30-11:00 AM). Akin expresses a desire for employment but struggles to initiate the necessary steps. He has attempted to quit smoking cold turkey without success. There is a history of alcohol use, which may be exacerbating his depressive symptoms and interfering with medication efficacy. Akin is resistant to taking medication, citing concerns about grogginess and a preference for managing independently. Plan: - Implement gradual behavioral activation techniques: - Start with small movements (e.g., wiggling fingers and toes) - Progress to larger movements (e.g., getting out of bed) - Encourage outdoor activities and exposure to bright light - Focus on job search strategies: - Set small, achievable goals for job applications - Utilize job search platforms like [employer] - Address alcohol use: - Educate on negative interactions with medications and impact on mood - Encourage reduction or cessation of alcohol consumption - Discuss smoking cessation strategies as an alternative to cold turkey approach - Continue to explore patient's hesitations about medication while respecting his preferences - Schedule follow-up appointments every other week as per patient's preference 09/03/2024 Generalized anxiety disorder (ICD-10 - F41.1) 09/08/2024 Major depressive disorder, single episode, moderate (ICD-10 - F32.1) Cannabis Use Disorder, in early remission Assessment: Patient reports smoking cannabis a couple of weeks ago but expresses a desire to discontinue use. He states, I don't really want to go back to it after that and it wasn't the same, indicating a shift in his perception of cannabis use. This change in attitude, coupled with his efforts to find alternative activities like window shopping, suggests progress towards abstinence. The patient's concern about drug testing for his potential job at [employer] further motivates his abstinence. Plan: - Continue to monitor cannabis use and reinforce abstinence. - Explore and encourage alternative coping mechanisms and activities to replace cannabis use. - Discuss strategies to maintain abstinence, particularly in light of upcoming employment opportunity. Insomnia Assessment: Patient reports waking up around 3 AM and taking approximately 20 minutes to fall back asleep. He identifies temperature as a possible contributing factor to his sleep disturbance. Current sleep environment includes a fan in the basement, but patient reports limited ability to further cool the room. Plan: - Explore additional sleep hygiene techniques to improve sleep quality. - Discuss potential environmental modifications to address temperature concerns. - Monitor sleep patterns and their impact on daily functioning. 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 Plan: - Provide support and encouragement for upcoming job interview. - Discuss strategies for interview preparation and professional presentation. - Explore patient's career goals and potential long-term employment options. 09/08/2024 Marijuana use (ICD-10 - F12.90) Cannabis Use Disorder, in early remission Assessment: Patient reports smoking cannabis a couple of weeks ago but expresses a desire to discontinue use. He states, I don't really want to go back to it after that and it wasn't the same, indicating a shift in his perception of cannabis use. This change in attitude, coupled with his efforts to find alternative activities like window shopping, suggests progress towards abstinence. The patient's concern about drug testing for his potential job at [employer] further motivates his abstinence. Plan: - Continue to monitor cannabis use and reinforce abstinence. - Explore and encourage alternative coping mechanisms and activities to replace cannabis use. - Discuss strategies to maintain abstinence, particularly in light of upcoming employment opportunity. Insomnia Assessment: Patient reports waking up around 3 AM and taking approximately 20 minutes to fall back asleep. He identifies temperature as a possible contributing factor to his sleep disturbance. Current sleep environment includes a fan in the basement, but patient reports limited ability to further cool the room. Plan: - Explore additional sleep hygiene techniques to improve sleep quality. - Discuss potential environmental modifications to address temperature concerns. - Monitor sleep patterns and their impact on daily functioning. 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 Plan: - Provide support and encouragement for upcoming job interview. - Discuss strategies for interview preparation and professional presentation. - Explore patient's career goals and potential long-term employment options. 09/22/2024 Encounter for screening for cardiovascular disorders (ICD-10 - Z13.6) Verified the injection dose and diagnosis 09/22/2024 Schizoaffective schizophrenia (ICD-10 - F25.9) Verified the injection dose and diagnosis 09/22/2024 Generalized anxiety disorder (ICD-10 - F41.1) Attention-Defic it/Hyperactivit y Disorder (ADHD) Assessment: Patient has a known history of ADHD, which is contributing to difficulties with impulse control and self-regulation . These symptoms are impacting his eating habits and decision-making processes. The patient expresses a desire to improve his self-control, particularly in relation to impulsive decisions and eating behaviors. He reports difficulty in managing these impulses independently, indicating that his ADHD symptoms are currently not optimally controlled. Plan: - Implement impulse control strategies: - Utilize grounding techniques such as cold sensations (e.g., splashing cold water on face) or sour candy to create a pause before acting on impulses - Practice using physical reminders (e.g., rubber band or hair tie) to prompt conscious decision-making - Address eating habits: - Encourage patient to pause and assess true hunger versus emotional eating - Recommend drinking water when feeling the urge to eat unnecessarily - Suggest incorporating high-fiber foods like vegetables (e.g., broccoli) to promote satiety - Follow up next Sunday to review progress and continue working on impulse control strategies Adjustment to New Employment Assessment: Patient has secured a new job with [employer], scheduled to begin on November 03. This represents a significant life change that may impact his daily routine and stress levels. The patient expresses a desire to rest and prepare for this transition, indicating awareness of the upcoming adjustment period. However, there is a potential risk of under-stimulati on or boredom in the interim, which could exacerbate ADHD symptoms or lead to unhealthy behaviors. Plan: - Encourage engagement in productive activities before job start date: - Support patient's plan to repair a 4-hernandez as a constructive project - Recommend maintaining a consistent sleep schedule to prepare for work routine - Discuss strategies for managing potential stressors related to new job transition at next session 09/03/2024 Schizoaffective schizophrenia (ICD-10 - F25.9) drug use vs schizoaffective disorder. progress in treatment dependent on repeat urine drug screen *patient refused* increased quetiapine to 150 mg HS continue escitalopram 10 mg daily - start invega 6 mg for 3 days if urine drug screen comes back negative and symptoms persist. - invega sustenna 234 mg IM once after tolerability of invega PO confirmed - invega sustena 156 mg IM once one week after first IM injection. drug use vs schizoaffective disorder. progress in treatment dependent on repeat urine drug screen *patient refused* increased quetiapine to 150 mg HS - start invega 6 mg for 3 days if urine drug screen comes back negative and symptoms persist. - invega sustenna 234 IM once after tolerability of invega PO confirmed - invega sustena 156 mg IM once one week after first IM injection. 09/22/2024 Impulsiveness (ICD-10 - R45.87) Attention-Defic it/Hyperactivit y Disorder (ADHD) Assessment: Patient has a known history of ADHD, which is contributing to difficulties with impulse control and self-regulation . These symptoms are impacting his eating habits and decision-making processes. The patient expresses a desire to improve his self-control, particularly in relation to impulsive decisions and eating behaviors. He reports difficulty in managing these impulses independently, indicating that his ADHD symptoms are currently not optimally controlled. Plan: - Implement impulse control strategies: - Utilize grounding techniques such as cold sensations (e.g., splashing cold water on face) or sour candy to create a pause before acting on impulses - Practice using physical reminders (e.g., rubber band or hair tie) to prompt conscious decision-making - Address eating habits: - Encourage patient to pause and assess true hunger versus emotional eating - Recommend drinking water when feeling the urge to eat unnecessarily - Suggest incorporating high-fiber foods like vegetables (e.g., broccoli) to promote satiety - Follow up next Sunday to review progress and continue working on impulse control strategies Adjustment to New Employment Assessment: Patient has secured a new job with [employer], scheduled to begin on November 03. This represents a significant life change that may impact his daily routine and stress levels. The patient expresses a desire to rest and prepare for this transition, indicating awareness of the upcoming adjustment period. However, there is a potential risk of under-stimulati on or boredom in the interim, which could exacerbate ADHD symptoms or lead to unhealthy behaviors. Plan: - Encourage engagement in productive activities before job start date: - Support patient's plan to repair a 4-hernandez as a constructive project - Recommend maintaining a consistent sleep schedule to prepare for work routine - Discuss strategies for managing potential stressors related to new job transition at next session 09/29/2024 Schizoaffective schizophrenia (ICD-10 - F25.9) 3rd dose of invega sustenna 156 should be on 10/27/24 Verified the injection dose and diagnosis 09/29/2024 Generalized anxiety disorder (ICD-10 - F41.1) Insomnia Assessment: Patient reports persistent difficulty falling asleep due to a restless mind and racing thoughts. This appears to be an ongoing issue that has not resolved since the previous session. The patient expresses a desire to improve sleep quality and is open to implementing new strategies. Plan: - If unable to fall asleep within 20-30 minutes, advise patient to: - Get out of bed and engage in a low-stimulation activity (e.g., cleaning room, washing dishes) - Return to bed when feeling tired - Recommend using cold stimuli (e.g., cold water, ice) to interrupt racing thoughts before bedtime - Encourage deep breathing and muscle relaxation techniques when returning to bed - Follow up on effectiveness of these strategies at next session Overeating Assessment: Patient reports eating more than usual, which he attributes to boredom. He notes eating quickly and not realizing fullness until after finishing meals. This is a new behavior for the patient, as he previously maintained a very active work schedule that offset his food intake. The change in eating habits appears to be related to a shift in his daily routine and activity level. Plan: - Encourage mindful eating practices: - Advise patient to eat more slowly and pay attention to satiety cues - Suggest eating meals at work to potentially reduce portion sizes - Recommend balancing higher-calorie meals with increased physical activity or fill technician meals at other times - Discuss importance of finding a sustainable balance in eating habits - Follow up on implementation and effectiveness of these strategies at next session Physical activity Assessment: Patient expresses interest in increasing physical activity, specifically mentioning plans to start home workouts. He reports waking up earlier and feeling more energetic, spending more time walking throughout the day instead of sitting. Plan: - Encourage patient to proceed with plans for home workouts - Reinforce positive changes in daily activity levels (e.g., increased walking) - Follow up on implementation and impact of increased physical activity at next session 09/29/2024 Attention-defici t hyperactivity disorder, unspecified type (ICD-10 - F90.9) Previously diagnosed Insomnia Assessment: Patient reports persistent difficulty falling asleep due to a restless mind and racing thoughts. This appears to be an ongoing issue that has not resolved since the previous session. The patient expresses a desire to improve sleep quality and is open to implementing new strategies. Plan: - If unable to fall asleep within 20-30 minutes, advise patient to: - Get out of bed and engage in a low-stimulation activity (e.g., cleaning room, washing dishes) - Return to bed when feeling tired - Recommend using cold stimuli (e.g., cold water, ice) to interrupt racing thoughts before bedtime - Encourage deep breathing and muscle relaxation techniques when returning to bed - Follow up on effectiveness of these strategies at next session Overeating Assessment: Patient reports eating more than usual, which he attributes to boredom. He notes eating quickly and not realizing fullness until after finishing meals. This is a new behavior for the patient, as he previously maintained a very active work schedule that offset his food intake. The change in eating habits appears to be related to a shift in his daily routine and activity level. Plan: - Encourage mindful eating practices: - Advise patient to eat more slowly and pay attention to satiety cues - Suggest eating meals at work to potentially reduce portion sizes - Recommend balancing higher-calorie meals with increased physical activity or fill technician meals at other times - Discuss importance of finding a sustainable balance in eating habits - Follow up on implementation and effectiveness of these strategies at next session Physical activity Assessment: Patient expresses interest in increasing physical activity, specifically mentioning plans to start home workouts. He reports waking up earlier and feeling more energetic, spending more time walking throughout the day instead of sitting. Plan: - Encourage patient to proceed with plans for home workouts - Reinforce positive changes in daily activity levels (e.g., increased walking) - Follow up on implementation and impact of increased physical activity at next session 10/13/2024 Generalized anxiety disorder (ICD-10 - F41.1) well controlled, continue current therapy stable [email or web address]-7 on 10/13/2024: 1 10/13/2024 Schizoaffective schizophrenia (ICD-10 - F25.9) well controlled, continue current therapy stable 10/14/2024 Attention deficit hyperactivity disorder (ADHD), unspecified ADHD type (ICD-10 - F90.9) Cognitive and ADHD Assessment Summary Gu[place]upe Findings: ADHD (ASRS v1.1 - Part A): Result is indicative for ADHD. Behaviours related to ADHD score is 4 (threshold > 3), supporting clinical suspicion. Cognitive Markers: 6 cognitive markers are outside the typical range, showing significant variability in executive functioning. Cognitive Domains and Results 1. Planning (Spatial Planning) Overall Score: 13 (Typical: > 13; 15th percentile) Interpretation: Planning ability is at the lower end of the typical range, which may indicate some difficulty with organizing and structuring tasks. 2. Spatial Working Memory (Token Search) Average Score: 5.25 (Typical: > 4.83; 23rd percentile) Interpretation: Spatial working memory is somewhat below typical, suggesting mild difficulty holding and manipulating spatial information. 3. Attention (Feature Match) Number of Errors: 6 (Typical: < 4; 97th percentile) Reaction Time: 1974 ms (Typical: > 2335 ms; 2nd percentile) Impulsivity: Performance is both faster and less accurate, reflecting impulsive responding. Interpretation: Very high number of errors with faster than typical responses indicates significant impulsivity and reduced attention control. 4. Response Inhibition (Double Trouble) Number of Errors: 18 (Typical: < 10; 96th percentile) Interference for Errors: 7 (Typical: < 5; 94th percentile) Interference for Reaction Time: 1.22 (Typical: < 1.42; 56th percentile) Overall Reaction Time: 2292 ms (Typical: < 2603 ms; 67th percentile) Reaction Time Variability: 1028 ms (Typical: < 1103 ms; 82nd percentile) Interpretation: Substantial difficulty inhibiting automatic responses, with high error rates and variable reaction times. 5. Sustained Attention to Response Task (SART) Commission Errors: 5 (Typical: < 18; 15th percentile) Omission Errors: 0 (Typical: < 17; 15th percentile) Reaction Time Variability: 127 ms (Typical: < 215 ms; 42nd percentile) Slowing After Errors: 65 ms (Typical: > -63 ms; 71st percentile) Interpretation: Errors are within typical limits but towards the lower range, indicating some sustained attention challenges. Patterns and Clinical Interpretation Cognitive Profile: Marked by prominent deficits in attention and response inhibition, as shown by high error rates and impulsivity. Planning and working memory are below average, indicating executive function challenges. Consistency: Self-report (ASRS) and objective performance are congruent, both indicating significant ADHD symptoms. Functional Impact: Difficulties with attention, impulse control, and planning are likely to affect academic, occupational, or daily functioning. Recommendations 1. Clinical Next Steps: ADHD diagnosis is supported; results should be confirmed with a thorough clinical interview. Consider non-stimulant ADHD medication as first-line intervention. If stimulant medication is considered, recommend routine urine drug screening, frequent follow-up to adjust dosage, and monitor changes in blood pressure and weight. Patient should not be using or abusing any street drugs including marijuana. 2. Cognitive and Behavioral Strategies: Use external organization tools (planners, digital reminders, structured checklists). Practice task segmentation and time management techniques. Engage in structured routines to reduce distractions and improve follow-through. 3. Cognitive Exercises: Participate in brain-training activities targeting attention and working memory. Practice exercises that require sustained mental focus and inhibitory control, such as mindfulness or computerized attention tasks. 4. Functional Support: Consider ADHD coaching or occupational therapy to address executive function deficits in daily life. 10/31/2024 Generalized anxiety disorder (ICD-10 - F41.1) well controlled, continue current therapy stable NATHANIEL-7 on 10/13/2024: 1 11/28/2024 Schizoaffective schizophrenia (ICD-10 - F25.9) well controlled, continue current therapy stable Verified the injection dose and diagnosis 10/31/2024 Schizoaffective schizophrenia (ICD-10 - F25.9) well controlled, continue current therapy stable 11/13/2024 Schizoaffective schizophrenia (ICD-10 - F25.9) Electronic Prior Authorization was requested for Invega Sustenna 156 MG/ML Suspension Prefilled Syringe. Provider can order medication once approval received. 10/13/2024 Nicotine use (ICD-10 - Z72.0) 09/29/2024 Insomnia due to other mental disorder (ICD-10 - F51.05) Insomnia Assessment: Patient reports persistent difficulty falling asleep due to a restless mind and racing thoughts. This appears to be an ongoing issue that has not resolved since the previous session. The patient expresses a desire to improve sleep quality and is open to implementing new strategies. Plan: - If unable to fall asleep within 20-30 minutes, advise patient to: - Get out of bed and engage in a low-stimulation activity (e.g., cleaning room, washing dishes) - Return to bed when feeling tired - Recommend using cold stimuli (e.g., cold water, ice) to interrupt racing thoughts before bedtime - Encourage deep breathing and muscle relaxation techniques when returning to bed - Follow up on effectiveness of these strategies at next session Overeating Assessment: Patient reports eating more than usual, which he attributes to boredom. He notes eating quickly and not realizing fullness until after finishing meals. This is a new behavior for the patient, as he previously maintained a very active work schedule that offset his food intake. The change in eating habits appears to be related to a shift in his daily routine and activity level. Plan: - Encourage mindful eating practices: - Advise patient to eat more slowly and pay attention to satiety cues - Suggest eating meals at work to potentially reduce portion sizes - Recommend balancing higher-calorie meals with increased physical activity or fill technician meals at other times - Discuss importance of finding a sustainable balance in eating habits - Follow up on implementation and effectiveness of these strategies at next session Physical activity Assessment: Patient expresses interest in increasing physical activity, specifically mentioning plans to start home workouts. He reports waking up earlier and feeling more energetic, spending more time walking throughout the day instead of sitting. Plan: - Encourage patient to proceed with plans for home workouts - Reinforce positive changes in daily activity levels (e.g., increased walking) - Follow up on implementation and impact of increased physical activity at next session 09/29/2024 Encounter for screening for cardiovascular disorders (ICD-10 - Z13.6) Verified the injection dose and diagnosis 09/03/2024 Nicotine use (ICD-10 - Z72.0) 09/22/2024 Irritability and anger (ICD-10 - R45.4) Attention-Defic it/Hyperactivit y Disorder (ADHD) Assessment: Patient has a known history of ADHD, which is contributing to difficulties with impulse control and self-regulation . These symptoms are impacting his eating habits and decision-making processes. The patient expresses a desire to improve his self-control, particularly in relation to impulsive decisions and eating behaviors. He reports difficulty in managing these impulses independently, indicating that his ADHD symptoms are currently not optimally controlled. Plan: - Implement impulse control strategies: - Utilize grounding techniques such as cold sensations (e.g., splashing cold water on face) or sour candy to create a pause before acting on impulses - Practice using physical reminders (e.g., rubber band or hair tie) to prompt conscious decision-making - Address eating habits: - Encourage patient to pause and assess true hunger versus emotional eating - Recommend drinking water when feeling the urge to eat unnecessarily - Suggest incorporating high-fiber foods like vegetables (e.g., broccoli) to promote satiety - Follow up next Sunday to review progress and continue working on impulse control strategies Adjustment to New Employment Assessment: Patient has secured a new job with [employer], scheduled to begin on November 03. This represents a significant life change that may impact his daily routine and stress levels. The patient expresses a desire to rest and prepare for this transition, indicating awareness of the upcoming adjustment period. However, there is a potential risk of under-stimulati on or boredom in the interim, which could exacerbate ADHD symptoms or lead to unhealthy behaviors. Plan: - Encourage engagement in productive activities before job start date: - Support patient's plan to repair a 4-hernandez as a constructive project - Recommend maintaining a consistent sleep schedule to prepare for work routine - Discuss strategies for managing potential stressors related to new job transition at next session 09/08/2024 Generalized anxiety disorder (ICD-10 - F41.1) Cannabis Use Disorder, in early remission Assessment: Patient reports smoking cannabis a couple of weeks ago but expresses a desire to discontinue use. He states, I don't really want to go back to it after that and it wasn't the same, indicating a shift in his perception of cannabis use. This change in attitude, coupled with his efforts to find alternative activities like window shopping, suggests progress towards abstinence. The patient's concern about drug testing for his potential job at [employer] further motivates his abstinence. Plan: - Continue to monitor cannabis use and reinforce abstinence. - Explore and encourage alternative coping mechanisms and activities to replace cannabis use. - Discuss strategies to maintain abstinence, particularly in light of upcoming employment opportunity. Insomnia Assessment: Patient reports waking up around 3 AM and taking approximately 20 minutes to fall back asleep. He identifies temperature as a possible contributing factor to his sleep disturbance. Current sleep environment includes a fan in the basement, but patient reports limited ability to further cool the room. Plan: - Explore additional sleep hygiene techniques to improve sleep quality. - Discuss potential environmental modifications to address temperature concerns. - Monitor sleep patterns and their impact on daily functioning. 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 Plan: - Provide support and encouragement for upcoming job interview. - Discuss strategies for interview preparation and professional presentation. - Explore patient's career goals and potential long-term employment options. 09/03/2024 Hallucinations, unspecified (ICD-10 - R44.3) Depression Assessment: Akin exhibits symptoms consistent with depression, including low energy, lack of motivation, and difficulty maintaining a daily routine. He reports spending most of his day inactive, waiting for the day to end. There is a notable absence of structured activities and a lack of engagement in job searching, having only applied to one position recently. His sleep pattern is disrupted, with late wake-up times (10:30-11:00 AM). Akin expresses a desire for employment but struggles to initiate the necessary steps. He has attempted to quit smoking cold turkey without success. There is a history of alcohol use, which may be exacerbating his depressive symptoms and interfering with medication efficacy. Akin is resistant to taking medication, citing concerns about grogginess and a preference for managing independently. Plan: - Implement gradual behavioral activation techniques: - Start with small movements (e.g., wiggling fingers and toes) - Progress to larger movements (e.g., getting out of bed) - Encourage outdoor activities and exposure to bright light - Focus on job search strategies: - Set small, achievable goals for job applications - Utilize job search platforms like [employer] - Address alcohol use: - Educate on negative interactions with medications and impact on mood - Encourage reduction or cessation of alcohol consumption - Discuss smoking cessation strategies as an alternative to cold turkey approach - Continue to explore patient's hesitations about medication while respecting his preferences - Schedule follow-up appointments every other week as per patient's preference 08/22/2024 Generalized anxiety disorder (ICD-10 - F41.1) 08/22/2024 Irritability and anger (ICD-10 - R45.4) Nicotine Dependence Assessment: Patient reports smoking 2.5 to 3 packs of cigarettes per week, down from previous higher consumption. He expresses a desire to quit smoking but acknowledges the difficulty, citing its use as a coping mechanism for stress and its stimulant effects. The patient recognizes the need to find alternative coping strategies and is open to gradual reduction rather than abrupt cessation. Plan: - Implement gradual smoking reduction strategy - Introduce alternative coping mechanisms: - Use of plastic or paper straws cut to cigarette size for [id number] habit - Engage in physical activities (e.g., walking, biking, workout, yoga) when urge to smoke arises - Practice grounding techniques using 5 senses - Consider using rubber band on wrist as a reminder/deterr ent - Encourage healthy snack alternatives (e.g., carrots, watermelon) to manage oral fixation - Set a goal date for complete smoking cessation - Calculate potential financial savings from quitting to use as motivation Sleep Disturbance Assessment: Patient reports difficulty with sleep, which is impacting his daily routine and motivation. There are indications of auditory and visual hallucinations related to past. The sleep disturbance appears to be cyclical, with lack of sleep causing issues that lead to later bedtimes and difficulty waking in the morning. Plan: - Establish consistent sleep schedule: - Target bedtime of 9:30-10:00 PM - Wake-up time around 6:00-6:30 AM - Follow up with Wan for medication management - Implement morning routine to promote wakefulness: - Open room-darkening curtains upon waking - Allow natural light into the room - Open windows for fresh air when weather permits - Monitor effectiveness of sleep hygiene measures and medication adjustments Lifestyle Management Assessment: Patient expresses interest in establishing a healthier daily routine, including regular exercise and improved time management. He acknowledges the need for structure to support his goals of smoking cessation and better sleep habits. The patient also mentions a tendency to hold in emotions, which can lead to sudden outbursts. Plan: - Develop structured daily schedule: - Wake up at 6:00-6:30 AM - Begin at-home workouts 15-20 minutes after waking - Exercise for 30-45 minutes - Have breakfast/brunc h after workout - Gradually work towards gym attendance at 4:30 AM as a long-term goal - Encourage use of alarm clock to maintain consistent wake times - Explore healthy emotional expression techniques to prevent emotional suppression and outbursts - Implement regular outdoor activities to promote exposure to natural light and fresh air 08/08/2024 Hallucinations, unspecified (ICD-10 - R44.3) differential diagnosis: hallucinations secondary to substance use hallucinations secondary to sleep deprivation depression w/ psychotic features 08/01/2024 Encounter for screening for depression (ICD-10 - Z13.31) 08/08/2024 Irritability and anger (ICD-10 - R45.4) 1. Anger management and overstimulation - Patient reports improved stability in managing anger, particularly around his young siblings. - Implementing strategies to distance himself when feeling overstimulated, often recognizing the need when it's too late. - Describes feeling snippy when overwhelmed and tendency to want to physically remove himself from overstimulating situations. - Acknowledges difficulty in finding effective ways to create space, as children tend to follow him. - Demonstrates insight into the need for better coping mechanisms and shows willingness to learn new strategies. Plan: - Implement TIP (Temperature, Intense exercise, Paced breathing, Paired muscle relaxation). - Practice coping skills for short durations (e.g., 2 minutes) when calm to build habit. - Continue to monitor effectiveness of current strategies and adjust as needed. 2. Occupational concerns - Patient expresses interest in seeking employment and has been actively applying for jobs. 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 - Expresses ambivalence about working from home versus outside the home, noting desire to leave the house. - Mentions long-term goals of saving money, investing, or potentially relocating to [place] for business opportunities. Plan: - Encourage continued job search efforts and preparation for upcoming online interview. - Explore potential job opportunities that align with patient's interests and physical capabilities. - Discuss strategies for balancing work life with home responsibilitie s and mental health management. - Address potential challenges and coping strategies related to transitioning back into the workforce. 3. Social isolation and relationship management - Patient reports limited social connections, identifying only one friend, his sister, and sister's boyfriend. - Mentions distancing himself from old friends but acknowledges difficulty in fully letting go of these relationships. - Has abstained from social media use for over a year and a half, which may contribute to limited social network. Plan: - Explore patient's feelings about current social situation and desire for change. - Discuss healthy boundaries and strategies for maintaining beneficial relationships while distancing from potentially harmful ones. - Consider pros and cons of re-engaging with social media in a controlled manner to expand social connections. - Encourage patient to identify and pursue social activities aligned with his interests and values. 08/01/2024 Irritability and anger (ICD-10 - R45.4) 1. Anxiety with panic attacks - Implement weekly therapy sessions focusing on anxiety management techniques. - Explore triggers and underlying causes of panic attacks in specific locations. - Consider gradual exposure therapy to reduce anxiety in problematic settings. 2. Attention Deficit Hyperactivity Disorder (ADHD) - Assess current ADHD management strategies and their effectiveness. - Develop tailored coping mechanisms for improved focus and task completion. - Coordinate with medication management provider regarding potential ADHD medication options. 3. Hallucinations - Further assess the nature, frequency, and impact of hallucinations. - Explore potential environmental triggers or sleep-related factors. - Coordinate with medication management provider to evaluate current medications and their potential impact on hallucinations. 4. Anger management - Implement anger management techniques within therapy sessions. - Develop healthier communication strategies, particularly for family interactions. - Educate on the distinction between feeling anger and expressing it appropriately. 5. Sleep disturbances - Monitor sleep patterns and their impact on daily functioning. - Discuss sleep hygiene techniques and potential adjustments to sleep schedule. - Coordinate with medication management provider regarding prazosin use and its effects on sleep quality. 6. Appetite changes - Monitor eating patterns and their impact on overall health and well-being. - Provide education on balanced nutrition and meal planning if needed. 7. Motivation and daily living activities - Develop strategies to improve motivation and task initiation for daily activities. - Implement behavioral activation techniques to increase engagement in self-care and household tasks. - Monitor for signs of depression and adjust treatment plan as needed. Follow-up: - Schedule next therapy session to continue addressing identified issues and monitor progress. 08/08/2024 Encounter for screening for depression (ICD-10 - Z13.31) 1. Anger management and overstimulation - Patient reports improved stability in managing anger, particularly around his young siblings. - Implementing strategies to distance himself when feeling overstimulated, often recognizing the need when it's too late. - Describes feeling snippy when overwhelmed and tendency to want to physically remove himself from overstimulating situations. - Acknowledges difficulty in finding effective ways to create space, as children tend to follow him. - Demonstrates insight into the need for better coping mechanisms and shows willingness to learn new strategies. Plan: - Implement TIP (Temperature, Intense exercise, Paced breathing, Paired muscle relaxation). - Practice coping skills for short durations (e.g., 2 minutes) when calm to build habit. - Continue to monitor effectiveness of current strategies and adjust as needed. 2. Occupational concerns - Patient expresses interest in seeking employment and has been actively applying for jobs. 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 - Expresses ambivalence about working from home versus outside the home, noting desire to leave the house. - Mentions long-term goals of saving money, investing, or potentially relocating to [place] for business opportunities. Plan: - Encourage continued job search efforts and preparation for upcoming online interview. - Explore potential job opportunities that align with patient's interests and physical capabilities. - Discuss strategies for balancing work life with home responsibilitie s and mental health management. - Address potential challenges and coping strategies related to transitioning back into the workforce. 3. Social isolation and relationship management - Patient reports limited social connections, identifying only one friend, his sister, and sister's boyfriend. - Mentions distancing himself from old friends but acknowledges difficulty in fully letting go of these relationships. - Has abstained from social media use for over a year and a half, which may contribute to limited social network. Plan: - Explore patient's feelings about current social situation and desire for change. - Discuss healthy boundaries and strategies for maintaining beneficial relationships while distancing from potentially harmful ones. - Consider pros and cons of re-engaging with social media in a controlled manner to expand social connections. - Encourage patient to identify and pursue social activities aligned with his interests and values. 08/01/2024 Encounter for screening for cardiovascular disorders (ICD-10 - Z13.6) 08/08/2024 Nicotine use (ICD-10 - Z72.0) 08/01/2024 Encounter for screening for depression (ICD-10 - Z13.31) 1. Anxiety with panic attacks - Implement weekly therapy sessions focusing on anxiety management techniques. - Explore triggers and underlying causes of panic attacks in specific locations. - Consider gradual exposure therapy to reduce anxiety in problematic settings. 2. Attention Deficit Hyperactivity Disorder (ADHD) - Assess current ADHD management strategies and their effectiveness. - Develop tailored coping mechanisms for improved focus and task completion. - Coordinate with medication management provider regarding potential ADHD medication options. 3. Hallucinations - Further assess the nature, frequency, and impact of hallucinations. - Explore potential environmental triggers or sleep-related factors. - Coordinate with medication management provider to evaluate current medications and their potential impact on hallucinations. 4. Anger management - Implement anger management techniques within therapy sessions. - Develop healthier communication strategies, particularly for family interactions. - Educate on the distinction between feeling anger and expressing it appropriately. 5. Sleep disturbances - Monitor sleep patterns and their impact on daily functioning. - Discuss sleep hygiene techniques and potential adjustments to sleep schedule. - Coordinate with medication management provider regarding prazosin use and its effects on sleep quality. 6. Appetite changes - Monitor eating patterns and their impact on overall health and well-being. - Provide education on balanced nutrition and meal planning if needed. 7. Motivation and daily living activities - Develop strategies to improve motivation and task initiation for daily activities. - Implement behavioral activation techniques to increase engagement in self-care and household tasks. - Monitor for signs of depression and adjust treatment plan as needed. Follow-up: - Schedule next therapy session to continue addressing identified issues and monitor progress. 08/22/2024 Nicotine use (ICD-10 - Z72.0) Nicotine Dependence Assessment: Patient reports smoking 2.5 to 3 packs of cigarettes per week, down from previous higher consumption. He expresses a desire to quit smoking but acknowledges the difficulty, citing its use as a coping mechanism for stress and its stimulant effects. The patient recognizes the need to find alternative coping strategies and is open to gradual reduction rather than abrupt cessation. Plan: - Implement gradual smoking reduction strategy - Introduce alternative coping mechanisms: - Use of plastic or paper straws cut to cigarette size for [id number] habit - Engage in physical activities (e.g., walking, biking, workout, yoga) when urge to smoke arises - Practice grounding techniques using 5 senses - Consider using rubber band on wrist as a reminder/deterr ent - Encourage healthy snack alternatives (e.g., carrots, watermelon) to manage oral fixation - Set a goal date for complete smoking cessation - Calculate potential financial savings from quitting to use as motivation Sleep Disturbance Assessment: Patient reports difficulty with sleep, which is impacting his daily routine and motivation. There are indications of auditory and visual hallucinations related to past. The sleep disturbance appears to be cyclical, with lack of sleep causing issues that lead to later bedtimes and difficulty waking in the morning. Plan: - Establish consistent sleep schedule: - Target bedtime of 9:30-10:00 PM - Wake-up time around 6:00-6:30 AM - Follow up with Wan for medication management - Implement morning routine to promote wakefulness: - Open room-darkening curtains upon waking - Allow natural light into the room - Open windows for fresh air when weather permits - Monitor effectiveness of sleep hygiene measures and medication adjustments Lifestyle Management Assessment: Patient expresses interest in establishing a healthier daily routine, including regular exercise and improved time management. He acknowledges the need for structure to support his goals of smoking cessation and better sleep habits. The patient also mentions a tendency to hold in emotions, which can lead to sudden outbursts. Plan: - Develop structured daily schedule: - Wake up at 6:00-6:30 AM - Begin at-home workouts 15-20 minutes after waking - Exercise for 30-45 minutes - Have breakfast/brunc h after workout - Gradually work towards gym attendance at 4:30 AM as a long-term goal - Encourage use of alarm clock to maintain consistent wake times - Explore healthy emotional expression techniques to prevent emotional suppression and outbursts - Implement regular outdoor activities to promote exposure to natural light and fresh air 08/22/2024 Nicotine use (ICD-10 - Z72.0) 09/03/2024 Nicotine use (ICD-10 - Z72.0) Depression Assessment: Akin exhibits symptoms consistent with depression, including low energy, lack of motivation, and difficulty maintaining a daily routine. He reports spending most of his day inactive, waiting for the day to end. There is a notable absence of structured activities and a lack of engagement in job searching, having only applied to one position recently. His sleep pattern is disrupted, with late wake-up times (10:30-11:00 AM). Akin expresses a desire for employment but struggles to initiate the necessary steps. He has attempted to quit smoking cold turkey without success. There is a history of alcohol use, which may be exacerbating his depressive symptoms and interfering with medication efficacy. Akin is resistant to taking medication, citing concerns about grogginess and a preference for managing independently. Plan: - Implement gradual behavioral activation techniques: - Start with small movements (e.g., wiggling fingers and toes) - Progress to larger movements (e.g., getting out of bed) - Encourage outdoor activities and exposure to bright light - Focus on job search strategies: - Set small, achievable goals for job applications - Utilize job search platforms like [employer] - Address alcohol use: - Educate on negative interactions with medications and impact on mood - Encourage reduction or cessation of alcohol consumption - Discuss smoking cessation strategies as an alternative to cold turkey approach - Continue to explore patient's hesitations about medication while respecting his preferences - Schedule follow-up appointments every other week as per patient's preference 09/08/2024 Hallucinations, unspecified (ICD-10 - R44.3) Cannabis Use Disorder, in early remission Assessment: Patient reports smoking cannabis a couple of weeks ago but expresses a desire to discontinue use. He states, I don't really want to go back to it after that and it wasn't the same, indicating a shift in his perception of cannabis use. This change in attitude, coupled with his efforts to find alternative activities like window shopping, suggests progress towards abstinence. The patient's concern about drug testing for his potential job at [employer] further motivates his abstinence. Plan: - Continue to monitor cannabis use and reinforce abstinence. - Explore and encourage alternative coping mechanisms and activities to replace cannabis use. - Discuss strategies to maintain abstinence, particularly in light of upcoming employment opportunity. Insomnia Assessment: Patient reports waking up around 3 AM and taking approximately 20 minutes to fall back asleep. He identifies temperature as a possible contributing factor to his sleep disturbance. Current sleep environment includes a fan in the basement, but patient reports limited ability to further cool the room. Plan: - Explore additional sleep hygiene techniques to improve sleep quality. - Discuss potential environmental modifications to address temperature concerns. - Monitor sleep patterns and their impact on daily functioning. 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 Plan: - Provide support and encouragement for upcoming job interview. - Discuss strategies for interview preparation and professional presentation. - Explore patient's career goals and potential long-term employment options. 09/22/2024 Encounter for screening for depression (ICD-10 - Z13.31) Attention-Defic it/Hyperactivit y Disorder (ADHD) Assessment: Patient has a known history of ADHD, which is contributing to difficulties with impulse control and self-regulation . These symptoms are impacting his eating habits and decision-making processes. The patient expresses a desire to improve his self-control, particularly in relation to impulsive decisions and eating behaviors. He reports difficulty in managing these impulses independently, indicating that his ADHD symptoms are currently not optimally controlled. Plan: - Implement impulse control strategies: - Utilize grounding techniques such as cold sensations (e.g., splashing cold water on face) or sour candy to create a pause before acting on impulses - Practice using physical reminders (e.g., rubber band or hair tie) to prompt conscious decision-making - Address eating habits: - Encourage patient to pause and assess true hunger versus emotional eating - Recommend drinking water when feeling the urge to eat unnecessarily - Suggest incorporating high-fiber foods like vegetables (e.g., broccoli) to promote satiety - Follow up next Sunday to review progress and continue working on impulse control strategies Adjustment to New Employment Assessment: Patient has secured a new job with [employer], scheduled to begin on November 03. This represents a significant life change that may impact his daily routine and stress levels. The patient expresses a desire to rest and prepare for this transition, indicating awareness of the upcoming adjustment period. However, there is a potential risk of under-stimulati on or boredom in the interim, which could exacerbate ADHD symptoms or lead to unhealthy behaviors. Plan: - Encourage engagement in productive activities before job start date: - Support patient's plan to repair a 4-hernandez as a constructive project - Recommend maintaining a consistent sleep schedule to prepare for work routine - Discuss strategies for managing potential stressors related to new job transition at next session 09/29/2024 Encounter for screening for depression (ICD-10 - Z13.31) Verified the injection dose and diagnosis 10/13/2024 Attention-defici t hyperactivity disorder, unspecified type (ICD-10 - F90.9) 09/29/2024 Irritability and anger (ICD-10 - R45.4) Insomnia Assessment: Patient reports persistent difficulty falling asleep due to a restless mind and racing thoughts. This appears to be an ongoing issue that has not resolved since the previous session. The patient expresses a desire to improve sleep quality and is open to implementing new strategies. Plan: - If unable to fall asleep within 20-30 minutes, advise patient to: - Get out of bed and engage in a low-stimulation activity (e.g., cleaning room, washing dishes) - Return to bed when feeling tired - Recommend using cold stimuli (e.g., cold water, ice) to interrupt racing thoughts before bedtime - Encourage deep breathing and muscle relaxation techniques when returning to bed - Follow up on effectiveness of these strategies at next session Overeating Assessment: Patient reports eating more than usual, which he attributes to boredom. He notes eating quickly and not realizing fullness until after finishing meals. This is a new behavior for the patient, as he previously maintained a very active work schedule that offset his food intake. The change in eating habits appears to be related to a shift in his daily routine and activity level. Plan: - Encourage mindful eating practices: - Advise patient to eat more slowly and pay attention to satiety cues - Suggest eating meals at work to potentially reduce portion sizes - Recommend balancing higher-calorie meals with increased physical activity or fill technician meals at other times - Discuss importance of finding a sustainable balance in eating habits - Follow up on implementation and effectiveness of these strategies at next session Physical activity Assessment: Patient expresses interest in increasing physical activity, specifically mentioning plans to start home workouts. He reports waking up earlier and feeling more energetic, spending more time walking throughout the day instead of sitting. Plan: - Encourage patient to proceed with plans for home workouts - Reinforce positive changes in daily activity levels (e.g., increased walking) - Follow up on implementation and impact of increased physical activity at next session 09/03/2024 Marijuana use (ICD-10 - F12.90) 10/31/2024 Nicotine use (ICD-10 - Z72.0) 10/31/2024 Attention-defici t hyperactivity disorder, unspecified type (ICD-10 - F90.9) 09/29/2024 Encounter for screening for depression (ICD-10 - Z13.31) Insomnia Assessment: Patient reports persistent difficulty falling asleep due to a restless mind and racing thoughts. This appears to be an ongoing issue that has not resolved since the previous session. The patient expresses a desire to improve sleep quality and is open to implementing new strategies. Plan: - If unable to fall asleep within 20-30 minutes, advise patient to: - Get out of bed and engage in a low-stimulation activity (e.g., cleaning room, washing dishes) - Return to bed when feeling tired - Recommend using cold stimuli (e.g., cold water, ice) to interrupt racing thoughts before bedtime - Encourage deep breathing and muscle relaxation techniques when returning to bed - Follow up on effectiveness of these strategies at next session Overeating Assessment: Patient reports eating more than usual, which he attributes to boredom. He notes eating quickly and not realizing fullness until after finishing meals. This is a new behavior for the patient, as he previously maintained a very active work schedule that offset his food intake. The change in eating habits appears to be related to a shift in his daily routine and activity level. Plan: - Encourage mindful eating practices: - Advise patient to eat more slowly and pay attention to satiety cues - Suggest eating meals at work to potentially reduce portion sizes - Recommend balancing higher-calorie meals with increased physical activity or fill technician meals at other times - Discuss importance of finding a sustainable balance in eating habits - Follow up on implementation and effectiveness of these strategies at next session Physical activity Assessment: Patient expresses interest in increasing physical activity, specifically mentioning plans to start home workouts. He reports waking up earlier and feeling more energetic, spending more time walking throughout the day instead of sitting. Plan: - Encourage patient to proceed with plans for home workouts - Reinforce positive changes in daily activity levels (e.g., increased walking) - Follow up on implementation and impact of increased physical activity at next session 10/13/2024 Marijuana use (ICD-10 - F12.90) reports he no longer uses marijuana 09/08/2024 Irritability and anger (ICD-10 - R45.4) Cannabis Use Disorder, in early remission Assessment: Patient reports smoking cannabis a couple of weeks ago but expresses a desire to discontinue use. He states, I don't really want to go back to it after that and it wasn't the same, indicating a shift in his perception of cannabis use. This change in attitude, coupled with his efforts to find alternative activities like window shopping, suggests progress towards abstinence. The patient's concern about drug testing for his potential job at [employer] further motivates his abstinence. Plan: - Continue to monitor cannabis use and reinforce abstinence. - Explore and encourage alternative coping mechanisms and activities to replace cannabis use. - Discuss strategies to maintain abstinence, particularly in light of upcoming employment opportunity. Insomnia Assessment: Patient reports waking up around 3 AM and taking approximately 20 minutes to fall back asleep. He identifies temperature as a possible contributing factor to his sleep disturbance. Current sleep environment includes a fan in the basement, but patient reports limited ability to further cool the room. Plan: - Explore additional sleep hygiene techniques to improve sleep quality. - Discuss potential environmental modifications to address temperature concerns. - Monitor sleep patterns and their impact on daily functioning. 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 Plan: - Provide support and encouragement for upcoming job interview. - Discuss strategies for interview preparation and professional presentation. - Explore patient's career goals and potential long-term employment options. 09/03/2024 Encounter for screening for depression (ICD-10 - Z13.31) 09/03/2024 Irritability and anger (ICD-10 - R45.4) Depression Assessment: Akin exhibits symptoms consistent with depression, including low energy, lack of motivation, and difficulty maintaining a daily routine. He reports spending most of his day inactive, waiting for the day to end. There is a notable absence of structured activities and a lack of engagement in job searching, having only applied to one position recently. His sleep pattern is disrupted, with late wake-up times (10:30-11:00 AM). Akin expresses a desire for employment but struggles to initiate the necessary steps. He has attempted to quit smoking cold turkey without success. There is a history of alcohol use, which may be exacerbating his depressive symptoms and interfering with medication efficacy. Akin is resistant to taking medication, citing concerns about grogginess and a preference for managing independently. Plan: - Implement gradual behavioral activation techniques: - Start with small movements (e.g., wiggling fingers and toes) - Progress to larger movements (e.g., getting out of bed) - Encourage outdoor activities and exposure to bright light - Focus on job search strategies: - Set small, achievable goals for job applications - Utilize job search platforms like [employer] - Address alcohol use: - Educate on negative interactions with medications and impact on mood - Encourage reduction or cessation of alcohol consumption - Discuss smoking cessation strategies as an alternative to cold turkey approach - Continue to explore patient's hesitations about medication while respecting his preferences - Schedule follow-up appointments every other week as per patient's preference 08/22/2024 Irritability and anger (ICD-10 - R45.4) 08/22/2024 Hallucinations, unspecified (ICD-10 - R44.3) Nicotine Dependence Assessment: Patient reports smoking 2.5 to 3 packs of cigarettes per week, down from previous higher consumption. He expresses a desire to quit smoking but acknowledges the difficulty, citing its use as a coping mechanism for stress and its stimulant effects. The patient recognizes the need to find alternative coping strategies and is open to gradual reduction rather than abrupt cessation. Plan: - Implement gradual smoking reduction strategy - Introduce alternative coping mechanisms: - Use of plastic or paper straws cut to cigarette size for [id number] habit - Engage in physical activities (e.g., walking, biking, workout, yoga) when urge to smoke arises - Practice grounding techniques using 5 senses - Consider using rubber band on wrist as a reminder/deterr ent - Encourage healthy snack alternatives (e.g., carrots, watermelon) to manage oral fixation - Set a goal date for complete smoking cessation - Calculate potential financial savings from quitting to use as motivation Sleep Disturbance Assessment: Patient reports difficulty with sleep, which is impacting his daily routine and motivation. There are indications of auditory and visual hallucinations related to past. The sleep disturbance appears to be cyclical, with lack of sleep causing issues that lead to later bedtimes and difficulty waking in the morning. Plan: - Establish consistent sleep schedule: - Target bedtime of 9:30-10:00 PM - Wake-up time around 6:00-6:30 AM - Follow up with Wan for medication management - Implement morning routine to promote wakefulness: - Open room-darkening curtains upon waking - Allow natural light into the room - Open windows for fresh air when weather permits - Monitor effectiveness of sleep hygiene measures and medication adjustments Lifestyle Management Assessment: Patient expresses interest in establishing a healthier daily routine, including regular exercise and improved time management. He acknowledges the need for structure to support his goals of smoking cessation and better sleep habits. The patient also mentions a tendency to hold in emotions, which can lead to sudden outbursts. Plan: - Develop structured daily schedule: - Wake up at 6:00-6:30 AM - Begin at-home workouts 15-20 minutes after waking - Exercise for 30-45 minutes - Have breakfast/brunc h after workout - Gradually work towards gym attendance at 4:30 AM as a long-term goal - Encourage use of alarm clock to maintain consistent wake times - Explore healthy emotional expression techniques to prevent emotional suppression and outbursts - Implement regular outdoor activities to promote exposure to natural light and fresh air 08/08/2024 Encounter for screening for cardiovascular disorders (ICD-10 - Z13.6) 08/01/2024 Encounter for screening for cardiovascular disorders (ICD-10 - Z13.6) 1. Anxiety with panic attacks - Implement weekly therapy sessions focusing on anxiety management techniques. - Explore triggers and underlying causes of panic attacks in specific locations. - Consider gradual exposure therapy to reduce anxiety in problematic settings. 2. Attention Deficit Hyperactivity Disorder (ADHD) - Assess current ADHD management strategies and their effectiveness. - Develop tailored coping mechanisms for improved focus and task completion. - Coordinate with medication management provider regarding potential ADHD medication options. 3. Hallucinations - Further assess the nature, frequency, and impact of hallucinations. - Explore potential environmental triggers or sleep-related factors. - Coordinate with medication management provider to evaluate current medications and their potential impact on hallucinations. 4. Anger management - Implement anger management techniques within therapy sessions. - Develop healthier communication strategies, particularly for family interactions. - Educate on the distinction between feeling anger and expressing it appropriately. 5. Sleep disturbances - Monitor sleep patterns and their impact on daily functioning. - Discuss sleep hygiene techniques and potential adjustments to sleep schedule. - Coordinate with medication management provider regarding prazosin use and its effects on sleep quality. 6. Appetite changes - Monitor eating patterns and their impact on overall health and well-being. - Provide education on balanced nutrition and meal planning if needed. 7. Motivation and daily living activities - Develop strategies to improve motivation and task initiation for daily activities. - Implement behavioral activation techniques to increase engagement in self-care and household tasks. - Monitor for signs of depression and adjust treatment plan as needed. Follow-up: - Schedule next therapy session to continue addressing identified issues and monitor progress. 08/22/2024 Encounter for screening for depression (ICD-10 - Z13.31) Nicotine Dependence Assessment: Patient reports smoking 2.5 to 3 packs of cigarettes per week, down from previous higher consumption. He expresses a desire to quit smoking but acknowledges the difficulty, citing its use as a coping mechanism for stress and its stimulant effects. The patient recognizes the need to find alternative coping strategies and is open to gradual reduction rather than abrupt cessation. Plan: - Implement gradual smoking reduction strategy - Introduce alternative coping mechanisms: - Use of plastic or paper straws cut to cigarette size for [id number] habit - Engage in physical activities (e.g., walking, biking, workout, yoga) when urge to smoke arises - Practice grounding techniques using 5 senses - Consider using rubber band on wrist as a reminder/deterr ent - Encourage healthy snack alternatives (e.g., carrots, watermelon) to manage oral fixation - Set a goal date for complete smoking cessation - Calculate potential financial savings from quitting to use as motivation Sleep Disturbance Assessment: Patient reports difficulty with sleep, which is impacting his daily routine and motivation. There are indications of auditory and visual hallucinations related to past. The sleep disturbance appears to be cyclical, with lack of sleep causing issues that lead to later bedtimes and difficulty waking in the morning. Plan: - Establish consistent sleep schedule: - Target bedtime of 9:30-10:00 PM - Wake-up time around 6:00-6:30 AM - Follow up with [facility] for medication management - Implement morning routine to promote wakefulness: - Open room-darkening curtains upon waking - Allow natural light into the room - Open windows for fresh air when weather permits - Monitor effectiveness of sleep hygiene measures and medication adjustments Lifestyle Management Assessment: Patient expresses interest in establishing a healthier daily routine, including regular exercise and improved time management. He acknowledges the need for structure to support his goals of smoking cessation and better sleep habits. The patient also mentions a tendency to hold in emotions, which can lead to sudden outbursts. Plan: - Develop structured daily schedule: - Wake up at 6:00-6:30 AM - Begin at-home workouts 15-20 minutes after waking - Exercise for 30-45 minutes - Have breakfast/brunc h after workout - Gradually work towards gym attendance at 4:30 AM as a long-term goal - Encourage use of alarm clock to maintain consistent wake times - Explore healthy emotional expression techniques to prevent emotional suppression and outbursts - Implement regular outdoor activities to promote exposure to natural light and fresh air 09/03/2024 Encounter for screening for depression (ICD-10 - Z13.31) Depression Assessment: Akin exhibits symptoms consistent with depression, including low energy, lack of motivation, and difficulty maintaining a daily routine. He reports spending most of his day inactive, waiting for the day to end. There is a notable absence of structured activities and a lack of engagement in job searching, having only applied to one position recently. His sleep pattern is disrupted, with late wake-up times (10:30-11:00 AM). Akin expresses a desire for employment but struggles to initiate the necessary steps. He has attempted to quit smoking cold turkey without success. There is a history of alcohol use, which may be exacerbating his depressive symptoms and interfering with medication efficacy. Akin is resistant to taking medication, citing concerns about grogginess and a preference for managing independently. Plan: - Implement gradual behavioral activation techniques: - Start with small movements (e.g., wiggling fingers and toes) - Progress to larger movements (e.g., getting out of bed) - Encourage outdoor activities and exposure to bright light - Focus on job search strategies: - Set small, achievable goals for job applications - Utilize job search platforms like [employer] - Address alcohol use: - Educate on negative interactions with medications and impact on mood - Encourage reduction or cessation of alcohol consumption - Discuss smoking cessation strategies as an alternative to cold turkey approach - Continue to explore patient's hesitations about medication while respecting his preferences - Schedule follow-up appointments every other week as per patient's preference 09/08/2024 Encounter for screening for depression (ICD-10 - Z13.31) Cannabis Use Disorder, in early remission Assessment: Patient reports smoking cannabis a couple of weeks ago but expresses a desire to discontinue use. He states, I don't really want to go back to it after that and it wasn't the same, indicating a shift in his perception of cannabis use. This change in attitude, coupled with his efforts to find alternative activities like window shopping, suggests progress towards abstinence. The patient's concern about drug testing for his potential job at [employer] further motivates his abstinence. Plan: - Continue to monitor cannabis use and reinforce abstinence. - Explore and encourage alternative coping mechanisms and activities to replace cannabis use. - Discuss strategies to maintain abstinence, particularly in light of upcoming employment opportunity. Insomnia Assessment: Patient reports waking up around 3 AM and taking approximately 20 minutes to fall back asleep. He identifies temperature as a possible contributing factor to his sleep disturbance. Current sleep environment includes a fan in the basement, but patient reports limited ability to further cool the room. Plan: - Explore additional sleep hygiene techniques to improve sleep quality. - Discuss potential environmental modifications to address temperature concerns. - Monitor sleep patterns and their impact on daily functioning. 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 Plan: - Provide support and encouragement for upcoming job interview. - Discuss strategies for interview preparation and professional presentation. - Explore patient's career goals and potential long-term employment options. 10/13/2024 Insomnia due to other mental disorder (ICD-10 - F51.05) needs improvement 10/31/2024 Marijuana use (ICD-10 - F12.90) reports he no longer uses marijuana 10/31/2024 Insomnia due to other mental disorder (ICD-10 - F51.05) needs improvement 09/03/2024 Encounter for screening for cardiovascular disorders (ICD-10 - Z13.6) 08/01/2024 Other Learning About Depression Screening material was printed, Quetiapine material was published, Escitalopram material was published Substance Use Disorder (Methamphetamine and Fentanyl) Assessment: Patient reports a history of methamphetamine use starting at age 13-14 and more recent use of both methamphetamine and fentanyl. Last reported use was approximately 3 months ago, which represents his longest period of sobriety. This indicates a chronic substance use disorder with recent abstinence. Plan: - Continue current medication regimen to support ongoing recovery - Recommend initiation of therapy for additional support - Follow up in one week to reassess progress and medication efficacy Insomnia Assessment: Patient reports difficulty falling asleep and maintaining sleep, despite current medication regimen including trazodone. He typically sleeps for only a couple of hours per night. The sleep disturbance may be related to his history of substance use or could be a separate primary insomnia. Plan: - Discontinue trazodone - Start quetiapine for sleep, anxiety, and potential hallucinations (7-day supply) - Continue escitalopram (30-day supply) - Continue hydroxyzine as needed - Follow up in one week to assess efficacy of medication changes - D/C propranolol r/t subjective report of ineffectiveness for sleep Anxiety Assessment: Patient reports anxiety as one of his primary concerns. He is currently taking escitalopram and hydroxyzine for management. The severity of his anxiety and its impact on daily functioning were not fully explored in this session. Plan: - Continue escitalopram (30-day supply) - Continue hydroxyzine as needed - Initiate quetiapine, which may also help with anxiety symptoms - Recommend initiation of therapy for additional support - Follow up in one week to reassess anxiety symptoms and medication efficacy Possible Psychotic Symptoms Assessment: Patient reports auditory hallucinations, including hearing music changing and ads talking to him. He also mentions that the TV tells him when to go outside to smoke. reports animals talk to him and tell him when to stop smoking. These symptoms have been present for approximately 6-8 weeks. The hallucinations/d elusions could be related to his history of substance use, a primary psychotic disorder, or potentially a side effect of current medications. Plan: - Initiate quetiapine for potential antipsychotic effects (7-day supply) - Educate patient on the importance of reporting any changes in hallucinations - Follow up in one week to reassess psychotic symptoms and medication efficacy Suicidal Ideation Assessment: Patient reports intermittent suicidal thoughts, stating It depends on the day. The frequency, intensity, and any specific plans were not fully explored in this session, but this represents a significant risk factor that requires close monitoring. Plan: - Provide Crisis Prevention Hotline number (579) and instruct patient to display it on their refrigerator - Educate patient to go to the emergency room if suicidal thoughts become too strong - Recommend initiation of therapy for additional support - Follow up in one week to reassess suicidal ideation and overall mental health status The note is transcribed using speech recognition software. It is a reflection of a visit with the patient. It might have some inaccuracy, including medication names and transcribing errors, though efforts have been made to correct them. 08/08/2024 Gracy Gerardo is a male patient with a history of substance use disorder, including recent methamphetamine and fentanyl use, presenting with ongoing visual hallucinations, intermittent suicidal ideation, and sleep disturbances. Psychotic symptoms Assessment: Patient reports ongoing visual hallucinations, including seeing shadow people and a person in a house. He also experiences auditory hallucinations, with music telling him to do things. These symptoms have been present for 6-8 weeks and occur even when not using substances. The patient has a history of hearing voices since age 19. Given the persistent nature of these symptoms in the absence of recent substance use, a diagnosis of schizophrenia is being considered. However, a definitive diagnosis cannot be made without establishing a regular sleep pattern and confirming sustained sobriety. Plan: - Initiate Quetiapine extended release 100 mg PO daily, taken 4 hours before bedtime or around dinner time - Discussed potential benefits for addressing psychotic symptoms and improving sleep - Continue monitoring with regular drug screens to ensure sobriety - Reassess psychotic features at follow-up visits Substance use disorder Assessment: Patient has a history of substance use disorder, including methamphetamine use starting at age 13-14 and recent methamphetamine and fentanyl use. Last reported use was 3 months ago. Patient denies current use of substances, including marijuana and nicotine. Ongoing monitoring is necessary to ensure sustained sobriety and to differentiate between substance-induce d and primary psychotic symptoms. Plan: - Continue regular drug screenings - Discuss medications to reduce cravings (e.g., naltrexone). - Provide education on the relationship between substance use and mental health symptoms Sleep disturbances Assessment: Patient reports going to bed around 8-10 PM, waking up twice per night, and taking about 15 minutes to fall back asleep. He reports needing to oversleep to compensate for disrupted sleep. These disturbances may be contributing to or exacerbating his psychotic symptoms. Plan: - Initiate Quetiapine extended release 100 mg PO daily, taken 4 hours before bedtime or around dinner time - Expect improvement in sleep quality and duration - Monitor sleep patterns and their impact on psychotic symptoms - Reassess sleep quality at follow-up visits Depression Assessment: Patient has a history of intermittent suicidal ideation. Recent PHQ-9 scores show mild to moderate depression (13 on 08-01-2024, 11 on 08-08-2024). Current BDI score of 9 indicates minimal depression. Patient denies current active suicidal ideation. Plan: - Continue Lexapro - Monitor depressive symptoms and suicidal ideation at follow-up visits - Reassess need for antidepressant medication adjustment after addressing sleep and psychotic symptoms Anxiety Assessment: Patient's NATHANIEL scores have improved from 11 on 08-01-2024 to 5 on 08-08-2024, indicating a reduction in anxiety symptoms. Plan: - Continue current treatment approach for anxiety - Monitor anxiety symptoms at follow-up visits Attention-Defici t/Hyperactivity Disorder (ADHD) Assessment: Patient has a history of using Adderall, suggesting a possible diagnosis of ADHD. However, current psychotic symptoms and substance use history take priority in treatment planning. Plan: - Defer ADHD assessment and treatment until psychotic symptoms, sleep issues, and substance use are stabilized - Reassess need for ADHD evaluation at future visits The note is transcribed using speech recognition software. It is a reflection of a visit with the patient. It might have some inaccuracy, including medication names and transcribing errors, though efforts have been made to correct them. 08/22/2024 Other Paliperidone Injection material was published, Paliperidone material was published, Paliperidone Injection material was printed, Paliperidone material was printed Akin, a patient with schizophrenia, presents with auditory hallucinations. Schizophrenia with Auditory Hallucinations Assessment: Patient reports experiencing auditory hallucinations described as a murmurs. The frequency of these hallucinations is unclear, but they appear to be ongoing. Patient is currently prescribed quetiapine for management of psychotic symptoms. Given the persistence of auditory hallucinations despite current treatment, and the potential for cognitive decline with each psychotic episode, a change in medication regimen is being considered. Plan: - Propose initiation of long-acting injectable antipsychotic (Invega) - Discuss benefits: improved medication adherence, potential for better symptom control - Explain administration schedule: - Initial dose: 234 mg injection - Second dose: 156 mg injection one week later - Subsequent doses: Monthly for 4 months, then transition to every 3 months - Continue quetiapine - Continue escitalopram - Obtain drug screen - Educate patient on risks of untreated schizophrenia, including potential loss of life expectancy and cognitive decline with each psychotic episode - Discuss importance of medication adherence - will not prescribe additional antipsychotics until UDS provided. substance use patient left during the assessment to go smoke. step father concerned with continued drug use. patient refused to provide a urine sample at visit, limiting progress of treatment. - encourage abstinence of illicit drug use. Potential Safety Risk Assessment: Patient has been requesting access to firearms, raising concerns about potential safety risks. This behavior, combined with the patient's active psychotic symptoms, warrants careful monitoring and intervention to ensure patient and community safety. Plan: - Advise against firearm possession due to safety concerns - Educate patient and caregiver about the risks associated with firearm access in the context of active psychotic symptoms - Obtain release of information from patient to communicate with caregiver - Instruct caregiver to report any concerns about potential firearm acquisition - patient does not currently have a FOID card. The note is transcribed using speech recognition software. It is a reflection of a visit with the patient. It might have some inaccuracy, including medication names and transcribing errors, though efforts have been made to correct them. 09/03/2024 Other Psychotic Disorder (in remission) Assessment: Patient reports no current hallucinations, delusions, or paranoia. Last episode of hallucinations occurred last week. Patient is currently on Quetiapine 150 mg nightly. Given the history of psychotic symptoms and current stability on medication, a long-acting injectable antipsychotic is being considered to prevent relapse and improve medication adherence. Plan: - Decrease Quetiapine to 100 mg PO nightly (2 x 50 mg tablets) - Start Invega 3 mg PO daily for 3 days as tolerability test prior to long-acting injectable - Informed patient about potential side effects and allergic reactions to monitor - If no adverse reactions, proceed with long-acting Invega injection - Schedule for first Invega long-acting injectable (234 mg) on Sunday09/22/2024 - schedule second injection of invega on 09/29/2024 - Discussed benefits of long-acting injectable for relapse prevention - Discontinue oral Invega on day of first injection - Continue Quetiapine until next visit, then discuss further dose reduction - Urine drug screen to be sent for secondary screening due to faint line for THC - Advised minimal alcohol use and abstinence from illicit substances while on long-acting injectable - Follow up after initiation of long-acting injectable to assess response and discuss further Quetiapine dose reduction Depression Assessment: PHQ-9: 5. patient subjectively denied depressive symptoms. Quetiapine is being used for depression management in addition to its antipsychotic effects. Plan: - decrease Quetiapine 100 mg HS - continue escitalopram 10 mg daily - Monitor depressive symptoms at follow-up visits - continue therapy Anxiety Assessment: Patient reports ongoing anxiety symptoms. Specific severity not mentioned, but Quetiapine is being used for anxiety management in addition to its antipsychotic effects. Plan: - Continue medications as above - Monitor anxiety symptoms at follow-up visits - continue therapy Sleep Disturbance Assessment: Patient reports variable sleep duration, with 6 hours of sleep the previous night. Plan: - Continue to monitor sleep patterns at follow-up visits - decrease quetiapine to 100 mg HS Substance Use Assessment: Patient reports occasional alcohol use. Urine drug screen showed a faint line for THC, suggesting possible recent cannabis use. Plan: - Advised minimal alcohol use and abstinence from illicit substances while on long-acting injectable - Urine drug screen to be sent for secondary screening due to faint line for THC - Continue to monitor and assess substance use at follow-up visits The note is transcribed using speech recognition software. It is a reflection of a visit with the patient. It might have some inaccuracy, including medication names and transcribing errors, though efforts have been made to correct them. 10/13/2024 Other Atomoxetine material was printed 1. SCHIZOAFFECTIVE disorder - Patient is on Invega injections for psychosis management. - First injection: 234 mg on September 05, 2024; second dose: 156 mg on September 29, 2024. - Next injection due on November 03, 2024. - Patient reports no current hallucinations or delusions. - Treatment appears effective; patient's mother reports he is doing very well and is a totally different person. - Plan: a. Schedule next Invega injection for November 03, 2024. b. Continue current Invega injection regimen. 2. Insomnia - Patient reports significant sleep difficulties, getting approximately 4 hours of sleep per night. - Goes to bed around midnight to 1 AM but has trouble falling asleep. - Recently ran out of quetiapine, which was not effective. reports he doesn't go to bed until 12 or 1 am. - Plan: a. Discontinue quetiapine extended release 100 mg. b. Start quetiapine immediate-releas e 50 mg HS. c. Take quetiapine 30-60 minutes before desired sleep time. d. encourage sleep hygiene. 3. Anxiety - Patient is currently taking Lexapro for anxiety management. - Hydroxyzine available for as-needed use, but patient reports he has not taken it. - Plan: a. Continue Lexapro 10 mg daily. b. d/c hydroxyzine c. continue therapy 4. Attention Deficit Hyperactivity Disorder (ADHD) - Patient has a history of ADHD diagnosed at age 12. - Reports current symptoms including difficulty sustaining attention, careless mistakes, poor listening, difficulty finishing work and organizing tasks, reluctance to engage in tasks requiring sustained effort, losing necessary items, easy distractibility, and forgetfulness in daily activities. - Previously took stimulant medication and clonidine. - Plan: a. Start atomoxetine (Strattera) 40 mg daily. b. Schedule ADHD testing. c. Follow up in one week after ADHD testing to review results and assess atomoxetine effectiveness. d. Consider dose increase of atomoxetine at follow-up. 10/31/2024 Other 1. Attention Deficit Hyperactivity Disorder (ADHD) - Patient taking atomoxetine 40 mg in the morning. - Reports ongoing difficulty concentrating. - Plan: a. increase atomoxetine to 60 mg daily b. Monitor for improvement in concentration and overall ADHD symptoms. 2. Sleep Disturbance - Patient reports waking every 3 hours. - Current sleep medication appears ineffective. - Plan: a. Discontinue quetiapine b. Start trazodone for sleep. d. Monitor sleep quality and duration with new medication regimen. 3. History of Psychotic Symptoms - Patient denies current hallucinations or delusions. - invega injection is being continued. - Plan: a. Continue current injection regimen. b. Monitor for any re-emergence of psychotic symptoms. 4. Mood Assessment - Patient reports no current depression (rated 0/10) or anxiety. - Recent panic attack noted, details not provided. - No current suicidal or self-harm ideation reported. - Plan: a. Continue monitoring mood symptoms. b. Encourage patient to report any changes in mood or recurrence of panic attacks. c. continue escitalopram 10 mg daily. 10/31/2024 Verified the injection dose and diagnosis Plan Of Treatment Pending Test Test Name Order Date ADHD Testing 10/13/2024 Next Appt Details Provider Name:Acacia weinberg, 02/09/2025 09:00:00 AM, [address], [facility] [address], [place], [address], Insurance Providers Payer Name Payer Address Payer Phone Subscriber Number Group Number Insured Name Patient Relationship to Insured Coverage Start Date Coverage End Date [facility] [address] [place] [phone] [id number] AKIN KELLER Self - patient is the insured Medications Administered Medication Instructions Date of Administration Dosage Notes Invega Sustenna 09/29/2024 156 mg Invega Sustenna 10/31/2024 156 mg Invega Sustenna 11/28/2024 156 mg Invega Sustenna 09/22/2024 234 mg Medical (General) History Medical History History ICD Code Past Psychiatric History: Anxiety Disord er,PTSD,Bipolar Disorder abdominal aortic aneurysm: No atrial fibrillation: No chronic fatigue syndrome: No essential tremor: No hyperlipidemia: No hypertension: No Parkinson's disease: No restless leg syndrome: No stroke: No subdural hematoma: No type 1 diabetes mellitus: No type 2 diabetes mellitus: No vitamin B12 deficiency: No vitamin D deficiency: No Surgical History Surgery Date(Month/Year) myringotomy tubes tonsillectomy and adenoidectomy Eustachian Tube Balloon Dilation. Hospitalization History Reason Date(Month/Year) surgery
--- OUTSIDE RECORDS SUMMARY | 2025-02-02 16:01 | XMS_ITS | Encounter Summary ---
Author Organization [facility] Address 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
--- OUTSIDE RECORDS SUMMARY | 2025-02-02 16:01 | XMS_ITS | Encounter Summary ---
Author Organization [facility] Address [address] 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
--- OUTSIDE RECORDS SUMMARY | 2025-02-02 16:01 | XMS_ITS | Encounter Summary ---
Author Organization [facility] Address 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
--- OUTSIDE RECORDS SUMMARY | 2025-02-02 16:01 | XMS_ITS | Encounter Summary ---
Author Organization [facility] Address 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
--- OUTSIDE RECORDS SUMMARY | 2025-02-02 16:01 | XMS_ITS | Encounter Summary ---
Author Organization [facility] Address 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
--- OUTSIDE RECORDS SUMMARY | 2025-02-02 16:01 | XMS_ITS | Encounter Summary ---
Author Organization [facility] Address 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 Gender Identity Not on file Sexual Orientation Not on file documented as of this encounter Plan of Treatment Not on file documented as of this encounter Procedures Procedure Name Priority Date/Time Associated Diagnosis Comments CHG POLIOVIRUS IPV VF 3 12:00 AM SEWING TRIMMER CHG DTAP VACCINE <7 YO IM VFC 2002 12:00 AM SEWING TRIMMER CHG HIB HBOC VACCINE IM 4 DOSE VFC 2002 12:00 AM SEWING TRIMMER documented in this encounter Visit Diagnoses Not on filedocumented in this encounter Care Teams Repack Room Worker Relationship Specialty Start Date End Date Erik Galloway DO PCP - General Pediatrics 09/05/19 documented as of this encounter
--- OUTSIDE RECORDS SUMMARY | 2025-02-02 16:01 | XMS_ITS | Encounter Summary ---
Author Organization [facility] Address [address] [place] [address] Care Team Providers Care Lehr Loader Name Role Phone Erik Galloway DO Primary Care Provider Encounter Details Date Type Department Care Team (Late st Contact Info) Description 2002 Outpatient Historical [facility] Dennis Mu[facility]oz MD 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
--- OUTSIDE RECORDS SUMMARY | 2025-02-02 16:01 | XMS_ITS | Encounter Summary ---
Author Organization [facility] Address 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
--- OUTSIDE RECORDS SUMMARY | 2025-02-02 16:01 | XMS_ITS | Encounter Summary ---
Author Organization [facility] Address 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
--- OUTSIDE RECORDS SUMMARY | 2025-02-02 16:01 | XMS_ITS | Encounter Summary ---
Author Organization [facility] Address 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 STILL OPERATOR Gender Identity Not on file Sexual Orientation Not on file documented as of this encounter Plan of Treatment Not on file documented as of this encounter Procedures Procedure Name Priority Date/Time Associated Diagnosis Comments CHG POLIOVIRUS IPV VFC 2 12:00 AM BENZOL STILL OPERATOR CHG DTAP VACCINE <7 YO IM VFC 2002 12:00 AM BENZOL STILL OPERATOR CHG HIB HBOC VACCINE IM 4 DOSE VFC 2002 12:00 AM BENZOL STILL OPERATOR documented in this encounter Visit Diagnoses Not on filedocumented in this encounter Care Teams Internet Marketing Director Relationship Specialty Start Date End Date Erik Galloway DO PCP - General Pediatrics 09/05/19 documented as of this encounter
--- OUTSIDE RECORDS SUMMARY | 2025-02-02 16:01 | XMS_ITS | Encounter Summary ---
Author Organization [facility] Address 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
--- OUTSIDE RECORDS SUMMARY | 2025-02-02 16:01 | XMS_ITS | Encounter Summary ---
Author Organization [facility] Address 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
--- OUTSIDE RECORDS SUMMARY | 2025-02-02 16:01 | XMS_ITS | Encounter Summary ---
Author Organization [facility] Address 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
--- OUTSIDE RECORDS SUMMARY | 2025-02-02 16:01 | XMS_ITS | Encounter Summary ---
Author Organization [facility] Address [address] [place] [address] Care Team Providers Care Operations Technician Name Role Phone Erik Galloway DO Primary Care Provider Encounter Details Date Type Department Care Team (Late st Contact Info) Description 2002 Outpatient Historical [address] [phone] Ras Raza MD NO ADDRESS ON FILE Social History Tobacco Use Types Packs/Day Years Used Date Smoking Tobacco: Never Assessed Sex and Gender Information Value Date Recorded Sex Assigned at Not on file Legal Sex Male 3:33 AM MANAGING DIRECTOR ATLAS Gender Identity Not on file Sexual Orientation Not on file documented as of this encounter Plan of Treatment Not on file documented as of this encounter Visit Diagnoses Not on filedocumented in this encounter Care Teams Operations Technician Relationship Specialty Start Date End Date Erik Galloway DO PCP - General Pediatrics 09/05/19 documented as of this encounter
--- OUTSIDE RECORDS SUMMARY | 2025-02-02 16:01 | XMS_ITS | Encounter Summary ---
Author Organization [facility] Address [address] [place] [address] Care Team Providers Care Academic Coordinator Name Role Phone Erik Galloway DO Primary Care Provider Encounter Details Date Type Department Care Team (Late st Contact Info) Description 2002 Outpatient Historical [facility] Rolf Osorio MD NO ADDRESS ON FILE ACUTE BRONCHIOLITIS/OTHR INFECT ORG (Primary Dx) Social History Tobacco Use Types Packs/Day Years Used Date Smoking Tobacco: Never Assessed Sex and Gender Information Value Date Recorded Sex Assigned at Not on file Legal Sex Male 3:33 AM DIRECTOR OF INVESTIGATIONS Gender Identity Not on file Sexual Orientation Not on file documented as of this encounter Plan of Treatment Not on file documented as of this encounter Visit Diagnoses Diagnosis Acute bronchiolitis due to other infectious organisms- Primary documented in this encounter Care Teams Academic Coordinator Relationship Specialty Start Date End Date Erik Galloway DO PCP - General Pediatrics 09/05/19 documented as of this encounter
--- OUTSIDE RECORDS SUMMARY | 2025-02-02 16:01 | XMS_ITS | Encounter Summary ---
Author Organization [facility] Address [address] [place] [address] Care Team Providers Care Watch Manufacturing Supervisor Name Role Phone Erik Galloway DO Primary Care Provider Encounter Details Date Type Department Care Team (Latest Contact Info) Description 2002 Outpatient Historical [facility] Rolf Osorio MD NO ADDRESS ON FILE ACUTE URI NOS (Primary Dx) Social History Tobacco Use Types Packs/Day Years Used Date Smoking Tobacco: Never Assessed Sex and Gender Information Value Date Recorded Sex Assigned at Not on file Legal Sex Male 3:33 AM SPECIAL OFFICER AUTOMAT Gender Identity Not on file Sexual Orientation Not on file documented as of this encounter Plan of Treatment Not on file documented as of this encounter Visit Diagnoses Diagnosis Acute upper respiratory infections of unspecified site- Primary documented in this encounter Care Teams Watch Manufacturing Supervisor Relationship Specialty Start Date End Date Erik Galloway DO PCP - General Pediatrics 09/05/19 documented as of this encounter
--- OUTSIDE RECORDS SUMMARY | 2025-02-02 16:01 | XMS_ITS | Encounter Summary ---
Author Organization [facility] Address 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
--- OUTSIDE RECORDS SUMMARY | 2025-02-02 16:01 | XMS_ITS | Encounter Summary ---
Author Organization [facility] Address 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
--- OUTSIDE RECORDS SUMMARY | 2025-02-02 16:01 | XMS_ITS | Encounter Summary ---
Author Organization [facility] Address 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
--- OUTSIDE RECORDS SUMMARY | 2025-02-02 16:01 | XMS_ITS | Encounter Summary ---
Author Organization [facility] Address 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
--- OUTSIDE RECORDS SUMMARY | 2025-02-02 16:01 | XMS_ITS | Encounter Summary ---
Author Organization [facility] Address [address] [place] [address] Care Team Providers Care Credit Underwriter Name Role Phone Erik Galloway DO Primary Care Provider Encounter Details Date Type Department Care Team (Late st Contact Info) Description 2002 Outpatient Historical [facility] Iqra Kraft MD [address] [place] [address] URTICARIA NOS (Primary Dx) Social History Tobacco Use Types Packs/Day Years Used Date Smoking Tobacco: Never Assessed Sex and Gender Information Value Date Recorded Sex Assigned at Not on file Legal Sex Male 3:33 AM RESEARCH AND DEVELOPMENT TECHNICIAN Gender Identity Not on file Sexual Orientation Not on file documented as of this encounter Plan of Treatment Not on file documented as of this encounter Visit Diagnoses Diagnosis Urticaria, unspecified- Primary documented in this encounter Care Teams Credit Underwriter Relationship Specialty Start Date End Date Erik Galloway DO PCP - General Pediatrics 09/05/19 documented as of this encounter
--- OUTSIDE RECORDS SUMMARY | 2025-02-02 16:01 | XMS_ITS | Encounter Summary ---
Author Organization [facility] Address [address] [place] [address] Care Team Providers Care Flat Surfacer Jewel Name Role Phone Erik Galloway DO Primary Care Provider Encounter Details Date Type Department Care Team (Late st Contact Info) Description 2002 Outpatient Historical [facility] [address] [place] [id number] Iqra Kraft MD [address] [place] [id number] Social History Tobacco Use Types Packs/Day Years Used Date Smoking Tobacco: Never Assessed Sex and Gender Information Value Date Recorded Sex Assigned at Not on file Legal Sex Male 3:33 AM OFFICE MANAGER RECEPTIONIST Gender Identity Not on file Sexual Orientation Not on file documented as of this encounter Plan of Treatment Not on file documented as of this encounter Visit Diagnoses Not on filedocumented in this encounter Care Teams Flat Surfacer Jewel Relationship Specialty Start Date End Date Erik Galloway DO PCP - General Pediatrics 09/05/19 documented as of this encounter
--- OUTSIDE RECORDS SUMMARY | 2025-02-02 16:03 | XMS_ITS | Clinical Summary ---
Author Organization [facility] Address [facility] [place] [address] Care Team Providers Care Craps Dealer Name Role Phone None, Provider MD Primary Care Provider Unavaila ble Medications prazosin (MINIPRESS) 2 MG capsule Take 3 mg by mouth nightly at bedtime. Active escitalopram (LEXAPRO) 10 MG tablet Take 1 tablet (10 mg total) by mouth nightly. Active magnesium oxide (MAG-OX) 400 (240 Mg) MG tablet Take 1 tablet (400 mg total) by mouth daily. Active albuterol sulfate HFA 108 (90 Base) MCG/ACT inhaler Inhale 2 puffs into the lungs every 6 (six) hours as needed for Wheezing. Active hydrOXYzine Pamoate 100 MG Cap Take 0.5 capsules by mouth 4 (four) times daily as needed. Active traZODone (DESYREL) 50 MG tablet Take 1 tablet (50 mg total) by mouth nightly as needed for Sleep. Active acetaminophen (TYLENOL) 500 MG tablet Take 1 tablet (500 mg total) by mouth every 6 (six) hours as needed for Pain. Active Social History Tobacco Use Types Packs/Day Years Used Date Smoking Tobacco: Every Day Cigarettes Smokeless Tobacco: Current Tobacco Cessation:Ready to Q uit: Not Asked; Counseling Given: Not Answered Sex and Gender Information Value Date Recorded Sex Assigned at Male 07/17/2024 11:37 AM CDT Legal Sex Male 8:16 PM CDT Gender Identity Male 07/17/2024 11:37 AM CDT Sexual Orientation Not on file Last Filed Vital Signs Vital Sign Reading Time Taken Comments Blood Pressure 103/52 07/17/2024 1:05 PM CDT Pulse 65 07/17/2024 1:05 PM CDT Temperature 36.1 C (96.9 F) 07/17/2024 11:15 AM CDT Respiratory Rate 16 07/17/2024 1:05 PM CDT Oxygen Saturation 100% 07/17/2024 1:05 PM CDT Inhaled Oxygen Concentration - - Weight 73.9 kg (163 lb) 07/17/2024 11:15 AM CDT Height 177.8 cm (5' 10) 07/17/2024 11:15 AM CDT Body Mass Index 23.39 07/17/2024 11:15 AM CDT Plan of Treatment Health Maintenance Due Date Last Done Comments Annual Physical 2005 Meningococcal B Vaccine (1 of 2 - Standard) 2018 Hepatitis C 01/08/2020 Pneumococcal Vaccine: Pediatrics (0 to 5 Years) and At-Risk Patients (6 to 49 Years) (1 of 2 - PCV) 2021 01/29/2004, 2002, 2002, Additional history exists DTaP, Tdap and Td Vaccines (7 - Td or Tdap) 05/05/2023 05/05/2013, 01/08/2006, 01/29/2004, Additional history exists COVID-19 Vaccine ( season) 2024 Influenza Adult (#1) 2024 12/19/2019, 12/11/2015, 11/11/2014 Hepatitis B Vaccines Completed 2002, 2002, 2002 Hepatitis A Vaccines Completed 11/04/2007, 02/01/20 05 HPV Vaccines Completed 10/04/2017, 05/0 12/2016, 12/11/2015 Meningococcal Vaccine Completed 05/23/2019, 015 RSV Immunizations Under 20 Months Aged Out No longer eligible based on patient's age to complete this topic Insurance [facility] Care Teams Craps Dealer Relationship Specialty Start Date End Date None, Provider, MD PCP - General UNKNOWN PHYSICIAN SPECIALTY 07/17/24
[2025-02-02] MEDS: LIDOCAINE 1% LOCAL INJ 2 ML AMPUL 4 ML INFILTRATE (16:20)
== END 2025-02-02 16:41 | disposition home or self-care (01) ==
PROVIDERS: Emergency Provider Nurse Practitioner
DX: L05.91 Pilonidal cyst without abscess (principal)
CPT/HCPCS: 10080; 87070; 87205; 99213; G0463; J2003